=== PATIENT | male | born 1950 | race Caucasian/White ===

== ENCOUNTER 2024-08-08 08:43 | Outpatient (CLI) | payer OTHER, SELFPAY ==
--- OUTSIDE RECORDS SUMMARY | 2024-08-07 16:39 | XMS_ITS | Clinical Summary ---
Author Organization [facility] Address [place], [place] [address] Care Team Providers Care Slip Cover Estimator Name Role Phone Sammy Chavez MD Unavailable [phone] Pcp, No Primary Care Provider Unavailabl e Allergies No known active allergies Medications ibuprofen (ADVIL; MOTRIN) 200 mg tablet Take 200 mg by mouth 4 times daily if needed. Take 1 tablet as needed for general aches and pains Active metoprolol tartrate (LOPRESSOR) 50 mg tablet Take 50 mg by mouth 2 times daily. Active iron,carbonyl-v itamin C (VITRON C) 65 mg iron- 125 mg Delayed-Release tablet Take 1 Tablet by mouth once daily. Active acetaminophen (TYLENOL) 325 mg tablet Take 650 mg by mouth every 6 hours if needed. 1 Active amoxicillin (AMOXIL) 500 mg capsule 0 Active ferrous sulfate, 65 mg elemental, tablet Take 1 Tablet by mouth once daily. 1 Active meclizine (ANTIVERT) 25 mg tablet TAKE 1 TABLET BY MOUTH THREE TIMES DAILY NEEDED FOR DIZZINESS OR VERTIGO 0 Active metoprolol succinate (TOPROL XL) 50 mg sustained-relea se tablet 1 Active Multivits,Ca,Mi [id number] 9 mg iron-400 mcg tablet Take 1 Tablet by mouth once daily. 1 Active nitroglycerin (NITROSTAT) 0.4 mg sublingual tablet DISSOLVE 1 TABLET ON THE TONGUE EVERY 5MIN NEEDED FOR CHEST PAIN. MAY REPEAT EVERY 5 MINUTES FOR UP TO 3 DOSES. 1 Active aspirin chewable 81 mg chewable tablet CHEW ONE TABLET BY MOUTH EVERY DAY 1 Active atorvastatin (LIPITOR) 80 mg tablet TAKE ONE TABLET BY MOUTH AT BEDTIME FOR CHOLESTEROL 1 Active clopidogreL (PLAVIX) 75 mg tablet Take 1 Tablet by mouth once daily. 1 Active metoprolol succinate (TOPROL XL) 100 mg Sustained-Relea se tablet Take 0.5 Tablets by mouth once daily. 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[employer] Gender Identity Not on file Sexual Orientation Not on file Obstetrics History Last Filed Vital Signs Vital Sign Reading Time Taken Comments Blood Pressure 141/75 11/22/2023 8:11 AM CDT Pulse 67 11/22/2023 8:11 AM CDT Temperature 36.8 C (98.2 F) 11/22/2023 8:11 AM CDT Respiratory Rate 18 11/22/2023 8:11 AM CDT Oxygen Saturation 100% 11/22/2023 8:11 AM CDT Inhaled Oxygen Concentration - - Weight 83.5 kg (184 lb) 11/22/2023 8:11 AM CDT Height 177.8 cm (5' 10) 11/22/2023 8:11 AM CDT Body Mass Index 26.4 11/22/2023 8:11 AM CDT Plan of Treatment Upcoming Encounters Date Type Department Care Team (Late st Contact Info) Description 08/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 Ancillary Procedure [facility] [address] [place] [address] Health Maintenance Due Date Last Done Comments Tdap 1961 BMI (ht and wt on same day) for age 18+ 1968 Hepatitis C screening for age 18-79 1968 Tetanus booster 1970 Colonoscopy through age 75 1995 Lipids for age 45-75 1995 Pneumococcal series for age 50+ (1 of 1 - PCV) 2000 Zoster (shingles) series for age 50+ (1 of 2) 2000 Depression screening for age 12+ 06/13/2022 06/13/2021, 04/04/2021, 03/31/2021 Influenza for age 65+ 04/06/2024 RSV vaccine for adults or pr egnancy (1 - 1-dose 75+ series) 2025 COVID-19 vaccine series Completed 05/29/2024, 06/[address] MEDICARE RR PART B HB ONLY MEDICARE RR PART A HB ONLY MEDICARE PART A HB ONLY [place] [id number] MEDICARE RR PART B HB ONLY Advance Directives * Full Code (Latest Code Status on File) Date Activated Date Inactivated Comments 01/24/2010 8:47 AM 01/25/2010 2:25 AM Care Teams Slip Cover Estimator Relationship Specialty Start Date End Date Pcp, No . PCP - General 10/16/23 Sammy Chavez MD 03/08/21
--- OUTSIDE RECORDS SUMMARY | 2024-08-07 16:39 | XMS_ITS | Encounter Summary ---
Author Name [facility] [place] [facility] [place] Address [address] [place] [address] Care Team Providers Care Desk Maker Name Role Phone ALEXIS JENNIFER Primary Care Provider Unavailabl e Insurance Providers: All historical and current Section Date Range: From patient's date of to the date document was created. This section includes the names of all active insurance providers for the patient. Insurance Provider Type of Coverage Plan Name Start of Policy Coverage End of Policy Coverage Group Number Member ID Insurance Provider's Telephone Number Policy Roach's Name Patient's Relationship to Policy Roach MEDICARE (WNR) MEDICARE (M) RR PART A May 06, 2015 RR PART A [phone] LORINICHOLASHUNG CURRY PATIENT MEDICARE (WNR) MEDICARE (M) RR PART B May 06, 2015 RR PART B [id number] JYOTIUS HUNG PATIENT [facility] ([place]) MEDICARE SUPPLEMEN KRISTY MEDIC ARE SUPPL EMENT Aug 06, 2018 [id number] [phone] JYOTIUS HUNG PATIENT Selected Encounter This section includes the information on record at [place] for the Encounter. Date/Time Encounter Type Encounter Description Reason Provider Source May 29, 2024 08:00 AM OFFICE O/P EST HI 40 MIN PRIMARY CARE/MEDICINE ICD-10-CM Z95.1 Presence of aortocoronary bypass graft ALEXISYUNIOR Bowden E Encounter Template Text not used by [facility] Assessments - Encounter Diagnoses This section includes the primary and secondary diagnoses documented for the Encounter. Date/Time Primary/Secondary Diagnosis Diagnosis Name Provider Source May 29, 2024 08:33 AM PRIMARY Presence of aortocoronary bypass graft JENNIFER ESPINOZA [facility] May 29, 2024 08:33 AM SECONDARY Benign prostatic hyperplasia with lower urinary tract symp JENNIFER ESPINOZA [place] [facility] May 29, 2024 08:33 AM SECONDARY Encntr for general adult medical exam w/o abnormal findings ALEXISJENNIFER [place] [facility] May 29, 2024 08:33 AM SECONDARY Encounter for immunization ASHLEY CHRISTINA [place] [facility] May 29, 2024 08:33 AM SECONDARY Hyperlipidemia, unspecified [facility] May 29, 2024 08:33 AM SECONDARY Unspecified osteoarthritis, unspecified site [facility] Plan of Treatment: Future Appointments (+ 6 months) and Future Tests (+/- 45 days) The Plan of Treatment section includes future care activities for the [facility] [place] [facility] This section includes future appointments and future orders which are active, pending or scheduled. Future Appointments This section includes appointments that were scheduled to occur 6 months from the date of the Encounter, up to a maximum of 20 appointments. The data comes from all [place] treatment facilities. Appointment Date/Time Appointment Type Appointme nt Facility Name Jun 26, 2024 07:45 AM AMBULATORY - SURGERY [facility] Jul 21, 2024 07:55 AM AMBULATORY - NONE [facility] Jul 24, 2024 08:45 AM AMBULATORY - SURGERY [facility] Sep 30, 2024 09:20 AM AMBULATORY - SURGERY [facility] Lab Results: +/- 30 days of the encounter This section includes the Chemistry and Hematology Lab Results on record with [facility] for the patient. Radiology Reports and Pathology Reports are provided separately, in subsequent sections. Lab Results This section contains the Chemistry/Hematology Results that were resulted 30 days before or 30 daysafter the date of the Encounter. Date/Time Source Result Type Result - Unit Interpretation Reference Range Comment Jun 02, 2024 11:59 PM [facility] OCCULT BLOOD FIT X1 SCREEN Specimen Type: FECES No comment entered. Ordering Provider: JENNIFER ESPINOZA Report Released Date/Time: May 29, 2024 08:11 AM Reporting Lab: [facility] [id number] Performing Lab: [facility] [id number] OCCULT BLOOD (FIT) #1 OF 1 Negative Negative May 29, 2024 08:35 AM [facility] URINALYS[facility] Specimen Type: URINE No comment entered. Ordering Provider: JENNIFER ESPINOZA Report Released Date/Time: May 29, 2024 08:11 AM Reporting Lab: [facility] [phone] Performing Lab: [facility] [id number] URINE COLOR LIGHT-YELLOW SPECIFIC GRAVITY 1.020 1.003-1.035 URINE BILIRUBIN NEGATIVE NEGATIVE URINE KETONES NEGATIVE NEGATIVE URINE GLUCOSE NEGATIVE mg/dL <30 URINE PROTEIN NEGATIVE mg/dL <20 URINE PH 7.0 5.0-8.0 URINE WBC/HPF 1 /[HPF] 0-7 URINE BACTERIA NONE SEEN URINE RBC/HPF 1 /[HPF] 0-3 APPEARANCE CLEAR SQUAMOUS EPITHELIAL <1 /[HPF] URINE BLOOD NEGATIVE NEGATIVE URINE NITRITE NEGATIVE NEGATIVE LEUKOCYTE ESTERASE NEGATIVE NEGATIVE May 29, 2024 08:29 AM [facility] HEMOGLOBIN A1C Specimen Type: BLOOD Comment: Values obtained from A1C measurements can vary. For typical A1C assays, a reported value of 7.0 could actually be between 6.7 and 7.3 if measured by a reference method. A reported value of 9.0 could actually be between 8.7 and 9.3. Ref: http://www.ngs p.org/CAPdata. asp Ordering Provider: JENNIFER ESPINOZA Report Released Date/Time: May 29, 2024 08:11 AM Reporting Lab: [facility] [id number] Performing Lab: [facility] [phone] HEMOGLOBIN A1C 5.6 4.0-6.0 May 29, 2024 08:29 AM [facility] TSH W/REFLEX TO FREE T4 Specimen Type: PLASMA No comment entered. Ordering Provider: JENNIFER ESPINOZA Report Released Date/Time: May 29, 2024 08:11 AM Reporting Lab: [facility] [phone] Performing Lab: [facility] [id number] TSH 3.35 u[IU]/mL 0.35-4.94 May 29, 2024 08:29 AM [facility] LIPID PANEL,NON-FASTING Specimen Type: PLASMA No comment entered. Ordering Provider: JENNIFER ESPINOZA Report Released Date/Time: May 29, 2024 08:11 AM Reporting Lab: [facility] [phone] Performing Lab: [facility] [phone] CHOLESTEROL 173 mg/dL <199 .HDL 59 mg/dL >40 LDL CALCULATION 99 mg/dL <99 VLDL CALCULATION 15 mg/dL <29 NON HDL CHOLESTEROL 114 mg/dL <129 TRIG(NON FASTING) 75 mg/dL <149 May 29, 2024 08:29 AM [facility] COMPREHENSIVE METABOLIC PANEL+MG Specimen Type: PLASMA No comment entered. Ordering Provider: JENNIFER ESPINOZA Report Released Date/Time: May 29, 2024 08:11 AM Reporting Lab: [facility] [phone] Performing Lab: [facility] [phone] CREATININE 0.8 mg/dL 0.7-1.2 UREA NITROGEN 15 mg/dL 8-26 GLUCOSE 88 mg/dL 70-100 SODIUM 141 mmol/L 136-145 POTASSIUM 4.2 mmol/L 3.5-5.1 CHLORIDE 108 mmol/L H 98-107 CO2 24 mmol/L 22-29 CALCIUM 9.5 mg/dL 8.4-10.2 PROTEIN,TOTAL 6.7 g/dL 6.4-8.3 ALBUMIN 4.1 g/dL 3.5-5.2 BILIRUBIN, TOTAL 0.7 mg/dL 0.2-1.2 MAGNESIUM 2.0 mg/dL 1.6-2.6 ANION GAP 9 mmol/L 5-15 ALKALINE PHOSPHATASE 105 U/L 40-150 ALT/SGPT 20 U/L <44 AST/SGOT 26 U/L 11-34 .CREAT EGFR(CKD-EPI) >90 >60 May 29, 2024 08:29 AM [facility] CBC & DIFF Specimen Type: BLOOD Comment: Automated Differential Performed Ordering Provider: JENNIFER ESPINOZA Report Released Date/Time: May 29, 2024 08:11 AM Reporting Lab: [facility] [phone] Performing Lab: [facility] [phone] WBC 5.1 4.0-11.0 RBC 4.61 4.60-6.20 HGB 14.1 g/dL 13.5-17.9 HCT 43.8 41.0-54.0 MCV 95.0 fL 80.0-100.0 MCH 30.6 pg 27.0-33.0 MCHC 32.2 g/dL 32.0-37.5 PLT 234 150-400 MPV 10.5 fL 9.1-13.0 NEUT 63.8 40.0-80.0 LYMPHS 23.7 15.0-45.0 MONO 9.7 2.0-12.0 EOSINO 1.8 0.0-6.0 BASO 0.8 0.0-2.0 RDW 13.2 11.5-14.5 ABS LYMPH 1.2 1.0-4.0 ABS MONO 0.5 0.1-1.0 ABS NEUT 3.2 2.0-7.7 ABS EOS 0.1 0.0-0.5 ABS BASO 0.0 0.0-0.2 IG(META,MYELO,[place] O) 0.2 ABS IMMATURE GRAN 0.0 0.0-0.1 Vital Signs: All taken on the encounter date This section contains inpatient and outpatient Vital Signs collected on the date of the Encounter. Date/Time Temperature Pulse Blood Pressure Respiratory Rate SP02 Pain Height Weight Body Mass Index Source May 29, 2024 07:48 AM 96.7 65 124/74 14 97 0 69.5 185 27 [facility] Immunizations: All administered on the encounter date This section contains immunizations associated to the Encounter. Immunization Series Date Issued Reaction Comments COVID-19 (PFIZER), MRNA, LNP -S, PF, GIL-SUCROSE, 30 MCG/0.3 ML (AGES 12+ YEARS) May 29, 2024 TD (ADULT), 5 LF TETANUS TOX OID, PRESERVATIVE FREE, ADSORBED May 29, 2024 Social History: Smoking Status (Most current) and Tobacco Use (All prior to encounter date) This section includes the most current, and the historical, smoking and tobacco- related health factors from the [place] facility where the Encounter took place. Current Smoking Status This section includes the most current smoking, or tobacco-related health factor, from the [place] facility where the Encounter took place. Date/Time Current Smoking Status Comment Ade ity May 29, 2024 08:00 AM [place]-TOBACCO FORMER USER [facility] Tobacco Use History This section includes a history of the smoking, or tobacco-related health factors, that were collected on or before the date of the Encounter. The data comes from the [place] facility where the Encounter took place. Date/Time Smoking Status/Tobacco Use Comment F acility May 29, 2024 08:00 AM [place] 15 YRS OR MORE [facility] Encounter Notes: All associated encounter notes This section contains the clinical notes associated to the Encounter. Date/Time Encounter Note(s) Provider Source May 29, 2024 08:07 AM H & P NOTE: LOCAL TITLE: CB ANNUAL VISIT STANDARD TITLE: H & P NOTE DATE OF NOTE: MAY 29, 2024@08:07 ENTRY DATE: MAY 29, 2024@07:44:55 AUTHOR: JENNIFER ESPINOZA EXP COSIGNER: URGENCY: STATUS: COMPLETED Type of Visit: ANNUAL VISIT - ESTABLISH CARE Reason for Visit: ANNUAL VISIT - ESTABLISH CARE Non [place] Providers: PCP Dr. Anastasia Mcallister - [facility] HPI: 74 year old MALE with PMH of below medical conditions seen today to establish care with [facility]. [place] [facility] Reports overall feeling well today. Tolerating medications without adverse effects. Denies recent illnesses or hospitalizations. [facility]ceives medical care with [facility] reviewed in [facility]. Concerns: Main reason for today's visit is to establish with local [place] care. He moved to the area to be closer to family after care home. Having BPH symptoms with urinary urgency with post-void dribbling. Nocturia x1. Denies retention, dyuria, hematuria, hx UTIs. Discussed medication options such as Tamsulosin or Finasteride. He declines this today but will f/u if desiring further care in the future. Past Medical History: Active problems - Computerized Problem List is the source for the followin. Ex-smoker - Quit 1980. 2. Osteoarthritis - S/P right total hip in 2009 ([place]). 3. History of calculus of kidney 4. Hyperlipidemia 5. AK - Actinic keratosis 6. Benign prostatic hypertrophy without outflow obstruction 7. Tinnitus 8. Plantar fasciitis of right foot 9. History of coronary artery bypass grafting - Mar 11 2021 triple bypass from femoral artery 10. 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 CABG 03/2021 2. 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 Normal resp rate and effort Abd: soft, NT : deferred Extrem: no edema Neuro: no gross deficits Mental: Normal mood and affect, cooperative Labs: PENDING Imaging: NONE TODAY Assessment/Plan: 1. ANNUAL VISIT - ESTABLISH CARE 2. CAD - stable; continue medical mangement; NTG renewed 3. HYPERLIPIDEMIA - lipid panel pending; Continue Atrovastatin 4. OSTEOARTHRITIS - stable; continue conservative measures 5. HX ANEMIA - CBC pending 6. BPH - declines tx today; will f/u prn Labs pending Continue current medications - no changes today Medication renewals sent as needed Medication reconciliation completed with [facility]et Encouraged healthy lifestyle choices Health maintenance recommendations reviewed Immunizations up to date - Td and COVID vaccines given today Patient information folder for [facility] provided and reviewed Information for local youth liaison officer provided Directed to local VSO for any claims concerns (Agent [place] exposure) Provided contact information for [place] audiology and eye clinics He may call to arrange own appointment at his convenience After visit summary offered Questions were answered Patient comfortable with above plan Follow up with nonVA PCP, Cardiology as directed RTC 1 year for annual visit or sooner as needed Health Care Maintenance - Colon Cancer Screenin05/31/21 Colonoscopy - REPEAT 10 YEARS - 06/12/23 FIT NEGATIVE - FIT ORDERED - AAA Screening (Age > 65-75) - 1 time for men: 10/07/2015 US - 2.4cm - Lung Cancer Screening (Age 55-79) - Low Dose CT Chest for Lung Cancer Screening for those with smoking history: N/A - Hepatitis C Screenin10/21/14 NEGATIVE - Vaccinations: IM - Immunizations ADMINISTERED Immunization Series Date Facility Reaction Info COVID-19 (MODERNA), MRNA, LNP-S,* 2 10/16/2020 [facility] * <C> COVID-19 (MODERNA), MRNA, LNP-S,* 1 09/18/2020 [facility] * <C> COVID-19 (PFIZER), MRNA, LNP-S, * 1 06/20/2022 [facility] * <C> COVID-19 (PFIZER), MRNA, LNP-S, * 3 07/23/2021 [facility] * <C> COVID-19 (PFIZER), MRNA, LNP-S, * 1 06/07/2023 [facility] * PNEUMOCOCCAL CONJUGATE PCV 13 08/02/2016 [facility]* PNEUMOCOCCAL CONJUGATE PCV 13 04/27/2016 [facility] PNEUMOCOCCAL POLYSACCHARIDE PPV23 12/17/2017 [facility] * <C> TD (ADULT), 2 LF TETANUS TOXOID,* 10/24/2004 [facility] TDAP 10/20/2013 [place]* <C> CONTRAINDICATED No data available REFUSED ======= Immunization Date Facility Info INFLUENZA, UNSPECIFIED FORMULATI* 06/07/2023 [facility] * <I> TD(ADULT) UNSPECIFIED FORMULATION 06/07/2023 [facility] * <I> ZOSTER RECOMBINANT 06/07/2023 [facility] * <I> <C> See the Detailed Immunizations Health Summary Component[DIM] for Comments <I> See the Detailed Immunizations Health Summary Component[DIM] for Additional Information * Value is truncated; see the Detailed Immunizations Health Summary Component[DIM] for complete text Total time spent with patient care including chart review/diagnostic and testing review, patient interview/examination, counseling, documentation and care coordination was 45 minutes Clinical Reminders: Avg Risk Colorectal Cancer Screen: AVERAGE RISK colorectal cancer screening is due based on information available to this clinical reminder FOBT/FIT (Fecal Immunochemical Testing) has been ordered. See order tab for details. Medication Reconciliation: Education Evaluations *Was medication education provided for NEW medications or CHANGES to medications? (including medication name, dose, route, reason for use, and potential side effects). No new medications or medication changes during this encounter. TERATOGENIC MED & CONTRACEPTION REVIEW (Optional)... MEDICATION RECONCILIATION List Given: An updated medication list was provided to the patient/caregiver. Review Done: The medication list shown below was verified for accuracy and it includes all pending medications/active medications/all medications or discontinued within the last 90 days/all remote medications and non-VA medications. If a given category (i.e. remote meds) is not shown, that means that a patient doesn't have a medication(s) in that category. Allergies listed below were also reviewed/updated for accuracy. Allergies/ADR from [facility] may not display in [facility]. Use [facility] MRT5 - Allergies/ADRs FACILITY ALLERGY/ADR -------- No Remote Allergy/ADR Data available for this patient [facility] No Known Allergies Active and Recently Outpatient Medications (including Supplies): Issue Date Status Last Fill Active Outpatient Medications Refills Expiration 1) ASPIRIN 81MG CHEW TAB Qty: 108 for 90 ACTIVE Issu:06-07-23 days Sig: CHEW ONE TABLET BY MOUTH Refills: 1 Last:04-02-24 EVERY DAY Expr:06-07-24 2) ATORVASTATIN CALCIUM 80MG TAB Qty: 90 ACTIVE Issu:06-07-23 for 90 days Sig: TAKE ONE TABLET BY Refills: 1 Last:04-02-24 MOUTH AT BEDTIME FOR CHOLESTEROL Expr:06-07-24 Issue Date Status Last Fill Pending Outpatient Medications Refills Expiration 1) ASPIRIN 81MG CHEW TAB Qty: 108 Sig: PENDING CHEW ONE TABLET BY MOUTH EVERY DAY Refills: 0 2) ATORVASTATIN CALCIUM 80MG TAB Qty: 90 PENDING Sig: TAKE ONE TABLET BY MOUTH AT Refills: 0 BEDTIME FOR CHOLESTEROL 4 Total Medications /es/ JENNIFER ESPINOZA PA-C PHYSICIAN [facility] Signed: 05/29/2024 08:34 [facility] May 29, 2024 07:51 AM PRIMARY CARE NURSI NG NOTE: LOCAL TITLE: CBOC NURSING PROGRESS NOTE STANDARD TITLE: PRIMARY CARE NURSING NOTE DATE OF NOTE: MAY 29, 2024@07:51 ENTRY DATE: MAY 29, 2024@07:51:19 AUTHOR: ASHLEY CHRISTINA EXP COSIGNER: URGENCY: STATUS: COMPLETED [facility] NURSING PROGRESS NOTE Has ADDENDA TYPE OF VISIT: Appointment Check In Type of appointment: In-person appointment REASON FOR VISIT: TAVIA ALLERGIES: Patient has answered NKA VITAL SIGNS: Blood Pressure: 124/74 (05/29/2024 07:48) Pulse: 65 (05/29/2024 07:48) Respiration: 14 (05/29/2024 07:48) Temperature: 96.7 F [35.9 C] (05/29/2024 07:48) Weight: 185 lb [83.91 kg] (05/29/2024 07:48) Height: 69.5 in [176.5 cm] (05/29/2024 07:48) BMI: 27.0 O2 Sat: 97% (05/29/2024 07:48) Pain: 0 (05/29/2024 07:48) PAIN SCREEN: Patient is not having significant pain that they wish to discuss with their provider today. MEDICATION Active Outpatient Medications (including Supplies): ASPIRIN 81MG CHEW TAB CHEW ONE TABLET BY MOUTH EVERY DAY ACTIVE ATORVASTATIN CALCIUM 80MG TAB TAKE ONE TABLET BY MOUTH AT ACTIVE BEDTIME FOR CHOLESTEROL Suicide Screen: C-SSRS Screening [place] Suicide Severity Rating Scale (C-SSRS) screener 1. Over the past month, have you wished you were or wished you could go to sleep and not wake up? No 2. Over the past month, have you had any actual thoughts of killing yourself? No 3. Over the past month, have you been thinking about how you might do this? Response not required due to responses to other questions. 4. Over the past month, have you had these thoughts and had some intention of acting on them? Response not required due to responses to other questions. 5. Over the past month, have you started to work out or worked out the details of how to kill yourself? Response not required due to responses to other questions. 6. If yes, at any time in the past month did you intend to carry out this plan? Response not required due to responses to other questions. 7. In your lifetime, have you ever done anything, started to do anything, or prepared to do anything to end your life (for example, collected pills, obtained a gun, gave away valuables, went to the roof but didn't jump)? No 8. If YES, was this within the past 3 months? Response not required due to responses to other questions. Depression Screening: Perform PHQ-2 A PHQ-2 screen was performed. The score was 0 which is a negative screen for depression. Over the past two weeks, how often have you been bothered by the following problems? 1. Little interest or pleasure in doing things Not at all 2. Feeling down, depressed, or hopeless Not at all Alcohol Use Screen (AUDIT-C): Alcohol Screen: SCREEN FOR ALCOHOL (AUDIT-C) An alcohol screening test (AUDIT-C) was negative (score=4). 1. How often did you have a drink containing alcohol in the past year? Consider a drink to be a 12 ounce can or bottle of regular beer, 8 ounces of malt liquor, a 5 ounce glass of table wine, or a 1.5 ounce shot of liquor (like scotch, gin, or vodka). Four or more times a week 2. How many drinks containing alcohol did you have on a typical day when you were drinking in the past year? One or two drinks 3. How often did you have six or more drinks on one occasion in the past year? Never Tobacco Use Screening: The patient is a former tobacco user. The patient quit fifteen or more years ago. PTSD Screening: PC-PTSD-5 A PTSD screening test (PC-PTSD-5) was negative (score=0). IN THE PAST MONTH, have you ever had any experience that was so frightening, horrible or traumatic. For example: A serious accident or fire a physical or sexual assault or abuse An earthquake or flood A war Seeing someone be killed or seriously injured Having a loved one through homicide or suicide 1. Have you ever experienced this kind of event? YES 2. Had nightmares about the event(s) or thought about the event(s) when you did not want to? NO 3. Tried hard not to think about the event(s) or went out of your way to avoid situations that reminded you of the event(s)? NO 4. Been constantly on guard, watchful, or easily startled? NO 5. Lucan numb or detached from people, activities, or your surroundings? NO 6. Lucan guilty or unable to stop blaming yourself or others for the event(s) or any problems the event(s) may have caused? NO Nursing Annual Screening: Whole Health Screen is due OR due soon (within 90 days). Whole Health Screening Why is addressing your overall health important to you? So I can live longer What do you want your health for (why do you want to be healthy)? Good quaility of life Fall History Screen During the past 12 months, have you had any falls? Patient does not report any falls in the past 12 months. MEDICATIONS: Patient does not have an active prescription for one of the following medications: Antihypertensives, Antidepressants, Antipsychotics, Diuretics, or Opioid Analgesics (Contolled Substance medications used for pain). Script Talk Screen Are you able to read your prescription bottles with your glasses, magnifiers or other aids? Yes or patient not taking any prescriptions. Skin Screen Patient reports any current pressure ulcers, a history of pressure ulcers, or a wound from a medical typist or Patient is bed-confined or a wheelchair-user or Patient requires assistance to transfer/change position No, Skin Screen is Negative Home Abuse/Violence Screen Is your home free of abuse and violence? Yes Outpatient Nutrition Screen Body Mass Index (BMI)= 27.0 [place]: Collection DT Specimen Test Name Result Units Ref Range 06/07/2023 13:31 BLOOD !! HEMOGLOBIN A1C 5.5 % 4.0 - 6.0 !! Indicates COMMENTS AVAILABLE...Refer to Interim Lab Report. [place] Hgb A1C: No data available [place] Hgb A1C: No data available Point of Care Hgb A1C: POC HGB A1C____ Is patient's BMI less than 18.5? No Does patient have swallowing, coughing, or chewing problems affecting oral intake? No Has patient experienced unplanned weight loss or gain greater than 10 pounds over the last 2 months? No Is patient's Hgb A1C (Glycosylated Hemoglobin) greater than 9.5? No Is patient receiving Total Parenteral Nutrition (TPN) or Tube Feedings? No Patient Health Education Screen BARRIERS/SPECIAL NEEDS: No barriers identified PREFERRED STYLE OF LEARNING: No preference stated Client Assistive Service (MANAN) Screen Does the patient require assistance with outpatient visit? Lillian /arnulfo/ ASHLEY CHRISTINA LPN [facility] Signed: 05/29/2024 07:56 05/29/2024 ADDENDUM STATUS: COMPLETED Td / Tdap Immunization: Td (adult) adsorbed, preservative free (Tenivac) Administered: TD (ADULT), 5 LF TETANUS TOXOID, PRESERVATIVE FREE, ADSORBED Date Administered: May 29, 2024 08:00 Wire Coiler Machine Operator: SANOFI PASTEUR Lot: [id number] Exp Date: May 05, 2026 NDC: [id number] Admin Route/Site: INTRAMUSCULAR/RIGHT DELTOID Dosage: 0.5mL Vaccine Information Statement(s): TD (TETANUS, DIPHTHERIA) VACCINE VIS Mar 11, 2021 ([place]) Order By: Policy Administered By: Ashley Christina Vaccine Information Sheet (VIS) was given to the patient/caregiver, education regarding adverse reactions was discussed, as well as barriers to learning, if any, were acknowledged. 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 /arnulfo/ ASHLEY CHRISTINA SENIOR DB2 SYSTEMS PROGRAMMERShanelle napoles [facility] Signed: 05/29/2024 08:01 ASHLEY CHRISTINA [facility]
--- OUTSIDE RECORDS SUMMARY | 2024-08-07 16:39 | XMS_ITS | Encounter Summary ---
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 Date/Time Encounter Type Encounter Description Reason Pro vider Source Jul 21, 2024 12:00 PM Outpatient Encounter EVENT (HISTORICAL) IHE Encounter Template Text not used by [place] Plan of Treatment: Future Appointments (+ 6 months) and Future Tests (+/- 45 days) The Plan of Treatment section includes future care activities for the patient from [facility] [place] [facility]. This section includes future appointments and future orders which are active, pending or scheduled. Future Appointments This section includes appointments that were scheduled to occur 6 months from the date of the Encounter, up to a maximum of 20 appointments. The data comes from all [facility]. Appointment Date/Time Appointment Type Appointme nt Facility Name Jul 24, 2024 08:45 AM AMBULATORY - SURGERY [facility] Sep 30, 2024 09:20 AM AMBULATORY - SURGERY [facility] Social History: Smoking Status (Most current) and Tobacco Use (All prior to encounter date) This section includes the most current, and the historical, smoking and tobacco- related health factors from the [place] facility where the Encounter took place. Current Smoking Status This section includes the most current smoking, or tobacco-related health factor, from the [place] facility where the Encounter took place. Date/Time Current Smoking Status Comment Facil ity Jun 15, 2022 12:04 PM VA-TOBACCO NEVER USED [facility] Tobacco Use History This section includes a history of the smoking, or tobacco-related health factors, that were collected on or before the date of the Encounter. The data comes from the [place] facility where the Encounter took place. Date/Time Smoking Status/Tobacco Use Comment F acility Oct 21, 2014 09:04 AM FORMER TOBACCO USER 7Y OR SIMA R [facility] Oct 20, 2013 08:37 AM FORMER TOBACCO USER 7Y OR SIMA R [facility]
--- OUTSIDE RECORDS SUMMARY | 2024-08-07 16:39 | XMS_ITS | Encounter Summary ---
Author Name [facility] [place] [facility] [place] Address [address] [place] [address] Care Team Providers Care Filleter Name Role Phone JENNIFER ESPINOZA Primary Care [...] A May 06, 2015 RR PART A [id number] [phone] JYOTIHUNG CURRY PATIENT MEDICARE (WNR) MEDICARE (M) RR PART B May 06, 2015 RR PART B [id number] HUNG MAYA PATIENT [facility] ([place] MEDICARE SUPPLEMEN KRISTY MEDIC ARE SUPPL EMENT Aug 06, 2018 [id number] [phone] HUNG MAYA PATIENT Selected Encounter This section includes the information on record at [place] for the Encounter. Date/Time Encounter Type Encounter Description Reason Provider Source Jul 24, 2024 08:45 AM CONFORMITY EVALUATION AUDIOLOGY ICD-10-CM H90.3 Sensorineural hearing loss, bilateral ROBERT GARCÍA IHE Encounter Template Text not used by [place] Assessments - Encounter Diagnoses This section includes the primary and secondary diagnoses documented for the Encounter. Date/Time Primary/Secondary Diagnosis Diagnosis Name Provider Source Jul 24, 2024 09:32 AM PRIMARY Sensorineural hearing loss, bilateral JETT QUINTERO [facility] Jul 24, 2024 09:32 AM SECONDARY Encounter for fitting and adjustment of hearing aid JETT QUINTERO [facility] Jul 24, 2024 09:32 AM SECONDARY Tinnitus, bilateral INGRID,JETT Bowden [facility] Plan of Treatment: Future Appointments (+ 6 months) and Future Tests (+/- 45 days) The Plan of Treatment section includes future care activities for the patient from all [place] [facility] This section includes future appointments and future orders which are active, pending or scheduled. Future Appointments This section includes appointments that were scheduled to occur 6 months from the date of the Encounter, up to a maximum of 20 appointments. The data comes from all [place] treatment facilities. Appointment Date/Time Appointment Type Appointme nt Facility Name Sep 30, 2024 09:20 AM AMBULATORY - SURGERY [facility] Social History: Smoking Status (Most current) and Tobacco Use (All prior to encounter date) This section includes the most current, and the historical, smoking and tobacco- related health factors from the [place] facility where the Encounter took place. Current Smoking Status This section includes the most current smoking, or tobacco-related health factor, from the [place] facility where the Encounter took place. Date/Time Current Smoking Status Comment Facil ity Jun 15, 2022 12:04 PM VA-TOBACCO NEVER USED [facility] Tobacco Use History This section includes a history of the smoking, or tobacco-related health factors, that were collected on or before the date of the Encounter. The data comes from the [place] facility where the Encounter took place. Date/Time Smoking Status/Tobacco Use Comment F acility Oct 21, 2014 09:04 AM FORMER TOBACCO USER 7Y OR GREATE R [facility] Oct 20, 2013 08:37 AM FORMER TOBACCO USER 7Y OR [facility] R [facility] Encounter Notes: All associated encounter notes This section contains the clinical notes associated to the Encounter. Date/Time Encounter Note(s) Provider Source Jul 24, 2024 07:46 AM AUDIOLOGY NOTE: LOCAL TITLE: AUDIOLOGY CLINIC NOTE STANDARD TITLE: AUDIOLOGY NOTE DATE OF NOTE: JUL 24, 2024@07:46 ENTRY DATE: JUL 24, 2024@07:46:14 AUTHOR: JETT QUINTERO COSIGNER: GEE GARCÍA URGENCY: STATUS: COMPLETED SUBJECT: Hearing aid fitting AUDIOLOGY CLINIC NOTE Has ADDENDA DIAGNOSIS: Encounter for Fitting and Adjustment of Hearing Aid Sensorineural hearing loss, bilateral Tinnitus, bilateral REASON FOR VISIT: Therapeutic - hearing aid fitting, conformity evaluation (real-ear measures), orientation and counseling Ebony was seen for Hearing Aid [place] Appointment HISTORY: Ebony is an experienced hearing aid wearer. Recommended keep his old hearing aids as a backup/spare as needed. HEARING AIDS (Right/Left) fit: 07/24/2024 Make: Phonak Model: Audeo I90-R Serial Numbers R/L: [id number] Tech Writer/Slim Tube Size: 2M receivers Dome/Earmold: Small vented ACCESSORIES: Android cell phone connection and kirk. OTOSCOPY: Both Ears: Free of excessive cerumen. Normal anatomy bilaterally FITTING/ORIENTATION/REPRO GRAMMING: Hearing aid(s) are a good physical fit. Feedback test was completed and feedback health and wellness manager was activated. Hearing aid(s) were programmed to prescriptive targets, which were derived from the Veterans hearing loss. CONFORMITY EVALUATION (VERIFICATION OF HEARING AID FUNCTION): Real Ear Aided Response (REAR) was measured using the Verifit 2 system using NAL-NL2 targets. Most targets were met. Loudness intolerance was measured using an 85 dB MPO tone sweep and the patient was able to tolerate the output of the hearing device(s). Veterans subjective impressions were considered while adjusting the hearing aid(s). reported good sound quality and equal balance between ears after adjustments were made. reported a comfortable fit. Milmine demonstrated understanding of the new aid(s) and was able to insert the hearing aid(s) appropriately, as well as manipulate the volume control and charging unit. Indicator tones were demonstrated for Milmine. Volume control enabled- Synchronized Program button enabled - Automatic - Speech in noise Veterans hearing aid(s) were paired to the patient's cell phone and kirk. A practice phone call was completed to verify functionality. Education and counseling was completed regarding streaming capabilities. The lock master phone application was reviewed in detail (volume control, program changes, settings, etc.) and demonstrated in the office. Milmine was counseled (30 minutes) regarding: -Full-time hearing aid use and acclimating to amplification -Realistic expectations for hearing aid use -Appropriate communication strategies -How to charge the hearing aids -Location and operation of all controls -Proper care and maintenance -Protecting hearing in high noise levels -Warning about battery ingestion -[facility] and Call Center contact information and services, including the trial period. Prognosis for success is good, given the Veterans response to the hearing aid(s). Hearing aid(s) were issued and supplies were mailed. Milmine was provided with a copy of [place] issuance form 2477b. PLAN: -The Milmine will return to clinic as needed for an updated hearing test and servicing of amplification. -The Milmine is in agreement with this plan. /Francesca Anderson CCC-A TRAY LINE SUPERVISOR Signed: 07/24/2024 09:45 for JETT QUINTERO Audiology Student /Francesca Anderson CCC-A TRAY LINE SUPERVISOR Cosigned: 07/24/2024 09:45 07/24/2024 ADDENDUM STATUS: COMPLETED Milmine with bilateral sensorineural loss was seen for the fitting of his new custom earmolds for his spare hearing aids. He is also following up on the fitting of his new hearing aids and pairing of the aids to the iPhone. The new earmolds were successfully fit to the hearing aids which were programmed utilizing Real Ear Measurements (REMs). Reviewed the care/cleaning of the devices. Successfully connected the aids to 's smartphone. Answered questions to 's satisfaction. ------ I am the provider for this encounter and participated in the evaluation of this patient. I confirmed the dominguez elements of the history and physical examination. Diagnosis and plan reflect my discussions and input. Pt was seen for a 60-minute appointment. /Francesca Anderson CCC-A TRAY LINE SUPERVISOR Signed: 07/24/2024 09:45 GEE GARCÍA [facility]
--- OUTSIDE RECORDS SUMMARY | 2024-08-07 16:39 | XMS_ITS | Encounter Summary ---
Author Name [facility] [place] Address [address] [place] [address] Care Team Providers Care Leadite Heater Name Role Phone JENNIFER ESPINOZA Primary Care [...] A May 06, 2015 RR PART A [id number] [phone] HUNG MAYA PATIENT MEDICARE (WNR) MEDICARE (M) RR PART B May 06, 2015 RR PART B [id number] [facility] ([place]) MEDICARE SUPPLEMEN KRISTY MEDIC ARE SUPPL EMENT Aug 06, 2018 [id number] [phone] HUNG MAYA PATIENT Selected Encounter This section includes the information on record at [place] for the Encounter. Date/Time Encounter Type Encounter Description Reason Pro vider Source Jul 28, 2024 06:27 PM Outpatient Encounter EVENT (HISTORICAL) IHE Encounter Template Text not used by [place] Plan of Treatment: Future Appointments (+ 6 months) and Future Tests (+/- 45 days) The Plan of Treatment section includes future care activities for the patient [facility] [place] [facility] This section includes future appointments and future orders which are active, pending or scheduled. Future Appointments This section includes appointments that were scheduled to occur 6 months from the date of the Encounter, up to a maximum of 20 appointments. The data comes from all [place] treatment facilities. Appointment Date/Time Appointment Type Appointme nt Facility Name Sep 30, 2024 09:20 AM AMBULATORY - SURGERY [facility] Social History: Smoking Status (Most current) and Tobacco Use (All prior to encounter date) This section includes the most current, and the historical, smoking and tobacco- related health factors from the [place] facility where the Encounter took place. Current Smoking Status This section includes the most current smoking, or tobacco-related health factor, from the [place] facility where the Encounter took place. Date/Time Current Smoking Status Comment Facil ity Jun 15, 2022 12:04 PM VA-TOBACCO NEVER USED [facility] Tobacco Use History This section includes a history of the smoking, or tobacco-related health factors, that were collected on or before the date of the Encounter. The data comes from the [place] facility where the Encounter took place. Date/Time Smoking Status/Tobacco Use Comment F acility Oct 21, 2014 09:04 AM FORMER TOBACCO USER 7Y OR SIMA Aguirre [facility] Oct 20, 2013 08:37 AM FORMER TOBACCO USER 7Y OR SIMA Aguirre [facility]
--- OUTSIDE RECORDS SUMMARY | 2024-08-07 16:39 | XMS_ITS | Encounter Summary ---
Author Name [facility] [facility] [place] Address [address] [place] [address] Care Team Providers Care Increment Manager Name Role Phone JENNIFER ESPINOZA Primary Care [...] A May 06, 2015 RR PART A [id number] [phone] JYOTIUS HUNG PATIENT MEDICARE (WNR) MEDICARE (M) RR PART B May 06, 2015 RR PART B [id number] [phone] HUNG [place] PATIENT [facility]) MEDICARE SUPPLEMEN KRISTY MEDIC ARE SUPPL EMENT Aug 06, 2018 [id number] [phone] HUNG [place] PATIENT Selected Encounter This section includes the information on record at [place] for the Encounter. Date/Time Encounter Type Encounter Description Reason Provider Source Jun 26, 2024 07:45 AM HEARING AID REPAIR/MODIFYING AUDIOLOGY ICD-10-CM Z01.118 Encntr for exam of ears and hearing w oth abnormal findings DENIS GARCÍA IH Encounter Template Text not used by [place] Assessments - Encounter Diagnoses This section includes the primary and secondary diagnoses documented for the Encounter. Date/Time Primary/Secondary Diagnosis Diagnosis Name Provider Source Jun 26, 2024 11:48 AM PRIMARY Encntr for exam of ears and hearing w oth abnormal findings JETT QUINTERO [facility] Jun 26, 2024 11:48 AM SECONDARY Encounter for fitting and adjustment of hearing aid JETT QUINTERO [facility] Jun 26, 2024 11:48 AM SECONDARY Sensorineural hearing loss, bilateral [facility] Jun 26, 2024 11:48 AM [facility]OND[facility] Plan of Treatment: Future Appointments (+ 6 months) and Future Tests (+/- 45 days) The Plan of Treatment section includes future care activities for the patient from all [place] [facility]. This section includes future appointments and future orders which are active, pending or scheduled. Future Appointments This section includes appointments that were scheduled to occur 6 months from the date of the Encounter, up to a maximum of 20 appointments. The data comes from all [place] treatment facilities. Appointment Date/Time Appointment Type Appointme nt Facility Name Jul 21, 2024 07:55 AM AMBULATORY - NONE [facility] Jul 24, 2024 08:45 AM AMBULATORY - SURGERY [facility] Sep 30, 2024 09:20 AM AMBULATORY - SURGERY [facility] Lab Results: +/- 30 days of the encounter This section includes the Chemistry and Hematology Lab Results on record with [place] for the patient. Radiology Reports and Pathology Reports are provided separately, in subsequent sections. Lab Results This section contains the Chemistry/Hematology Results that were resulted 30 days before or 30 daysafter the date of the Encounter. Date/Time Source Result Type Result - Unit Interpretation Reference Range Comment Jun 02, 2024 11:59 PM NIRMALA PEREZ OCCULT BLOOD FIT X1 SCREEN Specimen Type: FECES No comment entered. Ordering Provider: JENNIFER ESPINOZA Report Released Date/Time: May 29, 2024 08:11 AM Reporting Lab: [facility] [id number] Performing Lab: [facility] [id number] OCCULT BLOOD (FIT) #1 OF 1 Negative Negative May 29, 2024 08:35 AM NIRMALA PEREZ URINALYSIS Specimen Type: URINE No comment entered. Ordering Provider: JENNIFER ESPINOZA Report Released Date/Time: May 29, 2024 08:11 AM Reporting Lab: [facility] [id number] Performing Lab: [facility] [address] URINE COLOR LIGHT-YELLOW SPECIFIC GRAVITY 1.020 1.003-1.035 [...] NEGATIVE NEGATIVE May 29, 2024 08:29 AM NIRMALA PEREZ HEMOGLOBIN A1C Specimen Type: BLOOD Comment: [...] May 29, 2024 08:11 AM Reporting Lab: [facility] [id number] Performing Lab: [facility] [address] HEMOGLOBIN A1C 5.6 4.0-6.0 May 29, 2024 08:29 AM NIRMALA PEREZ LIPID PANEL,NON-FASTING Specimen Type: PLASMA No comment entered. Ordering Provider: JENNIFER ESPINOZA Report Released Date/Time: May 29, 2024 08:11 AM Reporting Lab: [facility] [phone] Performing Lab: [facility] [address] CHOLESTEROL 173 mg/dL <199 .HDL 59 mg/dL >40 LDL CALCULATION 99 mg/dL <99 VLDL CALCULATION 15 mg/dL <29 NON HDL CHOLESTEROL 114 mg/dL <129 TRIG(NON FASTING) 75 mg/dL <149 May 29, 2024 08:29 AM NIRMALA PEREZ TSH W/REFLEX TO FREE T4 Specimen Type: PLASMA No comment entered. Ordering Provider: JENNIFER ESPINOZA Report Released Date/Time: May 29, 2024 08:11 AM Reporting Lab: [facility] [id number] Performing Lab: [facility] [address] TSH 3.35 u[IU]/mL 0.35-4.94 May 29, 2024 08:29 AM NIRMALA PEREZ COMPREHENSIVE METABOLIC PANEL+MG Specimen Type: PLASMA No comment entered. Ordering Provider: JENNIFER ESPINOZA Report Released Date/Time: May 29, 2024 08:11 AM Reporting Lab: [facility] [phone] Performing Lab: [facility] [phone] CREATININE 0.8 mg/dL 0.7-1.2 UREA NITROGEN 15 [...] >90 >60 May 29, 2024 08:29 AM NIRMALA PEREZ CBC & DIFF Specimen Type: BLOOD Comment: Automated Differential Performed Ordering Provider: JENNIFER ESPINOZA Report Released Date/Time: May 29, 2024 08:11 AM Reporting Lab: [facility] [phone] Performing Lab: [facility] [address] WBC 5.1 4.0-11.0 RBC 4.61 4.60-6.20 HGB [...] EOS 0.1 0.0-0.5 ABS BASO 0.0 0.0-0.2 IG(META,MYELO,KS O) 0.2 ABS IMMATURE GRAN 0.0 0.0-0.1 Social History: Smoking Status (Most current) and Tobacco Use (All prior to encounter date) This section includes the most current, and the historical, smoking and tobacco- related health factors from the [place] facility where the Encounter took place. Current Smoking Status This section includes the most current smoking, or tobacco-related health factor, from the [place] facility where the Encounter took place. Date/Time Current Smoking Status Comment Ade ity Jun 15, 2022 12:04 PM VA-TOBACCO NEVER USED [facility] Tobacco Use History This section includes a history of the smoking, or tobacco-related health factors, that were collected on or before the date of the Encounter. The data comes from the [place] facility where the Encounter took place. Date/Time Smoking Status/Tobacco Use Comment F acility Oct 21, 2014 09:04 AM FORMER TOBACCO USER 7Y OR [facility] R [facility] Oct 20, 2013 08:37 AM FORMER TOBACCO USER 7Y OR [facility] R [facility] Encounter Notes: All associated encounter notes This section contains the clinical notes associated to the Encounter. Date/Time Encounter Note(s) Provider Source Jun 26, 2024 11:48 AM AUDIOLOGY NOTE: LOCAL TITLE: AUDIOLOGY CLINIC NOTE STANDARD TITLE: AUDIOLOGY NOTE DATE OF NOTE: JUN 26, 2024@11:48 ENTRY DATE: JUN 26, 2024@11:48:27 AUTHOR: JETT QUINTERO COSIGNER: GEE GARCÍA URGENCY: STATUS: COMPLETED SUBJECT: Hearing aid evaluation AUDIOLOGY CLINIC NOTE Has ADDENDA DIAGNOSIS: Encounter for exam of ears and hearing with other abnormal findings Encounter for fitting and adjustment of hearing aid Sensorineural hearing loss, bilateral Tinnitus, bilateral REASON FOR VISIT: THERAPEUTIC:HEARING AID EVALUATION, 60 minutes: HISTORY: was seen in the clinic today for a hearing evaluation. He reports that things have gone well with his P90 hearing aids, but that the earmolds make him feel plugged up and are uncomfortable by the end of the day. Because of this, he does not wear them all the time. He notices more hearing loss in his left ear than his right. He has a history of sudden sensorineural hearing loss in his left ear following a surgery. The [place] has bilateral tinnitus that can become bothersome at times. He is hopeful that hearing aids that work better for him can help. The [place] has started to notice more difficulty with communication, especially in group settings. The denied any significant otologic symptoms today. The was last seen in this clinic on 10/25/2020. The is Service [employer]cted for Hearing Loss/Tinnitus. [place] was unaccompanied. The currently wears the follow hearing aids: Hearing Aids (right and left): Fit on 10/25/2020. Make: Phonak Model: [employer] P90-RT Acoustics: 2M receivers, small vented domes (changed today from [employer]) Serial #s: [id number] Accessories: None, no cell phone connection PROCEDURES: OTOSCOPY Bilaterally: Free of excessive cerumen. Normal appearing TM's and canals. TYMPANOMETRY: RIGHT EAR: Type A Pressure: Normal Compliance: Normal Volume: Normal LEFT EAR: Type A Pressure: Normal Compliance: Normal Volume: Normal AUDIOMETRICS: Air conduction, Bone conduction, Speech testing Transducer: Insert phones, Circumaural headphones Reliability: good RIGHT EAR (Hz) 250 082 482 8853 1500 2000 3000 4000 6000 8000 Air: see Audiogram display under Tools->Audiology->ROES or see ARIANA database. Bone: see Audiogram display under Tools->Audiology->ROES or see ARIANA database. LEFT EAR (Hz) 250 048 858 2279 1500 2000 3000 4000 6000 8000 Air: see Audiogram display under Tools->Audiology->ROES or see ARIANA database. Bone: see Audiogram display under Tools->Audiology->ROES or see ARIANA database. 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 WORD RECOGNITION: /- word list Right Ear: 64% Level: 80* dB Left Ear: 68% Level: 80* dB SUMMARY: The [place]'s hearing has improved in the low frequencies and decreased in the high frequencies. RIGHT EAR: Type A tympanogram, consistent with normal middle ear function. Hearing within normal limits from 250-1000 Hz. Mild sloping to profound sensorineural hearing loss from 0776-8317 Hz. Moderately impaired word recognition. LEFT EAR: Type A tympanogram, consistent with normal middle ear function. Mild sensorineural hearing loss at 250 Hz, rising to hearing within normal limits from 250-1500 Hz. Mild sloping to severe sensorineural hearing loss from 6414-4845 Hz. Moderately impaired word recognition. AMPLIFICATION: - is a good candidate for hearing aid use. - was counseled on their type, degree and configuration of hearing loss. - The [place]'s hearing loss has progressed currently to the extent that it affects full participation in the provision of health care as noted today in our discussions. Hearing aids are medically indicated to treat the 's auditory conditions. - Different styles/technologies were reviewed with consideration given to 's listening situations and lifestyle needs. - The has good vision, memory, and dexterity for hearing aid use. - counseled on realistic expectations associated with adjusting to hearing aids, use of the devices, VA procedures and trial period. - [place] counseled on tinnitus, its physiologic basis, potential triggers, and treatment options/management strategies such as using a fan at night, avoiding silence, and trying to habituate to the sound. - Hearing aids ordered: Phonak Audeo I90-R, 2M receivers, small vented domes, color P1 - The uses an Android cell phone and is possibly interested in Bluetooth connection. HEARING AID REPAIR/MODIFY X2, SNs [id number]: - Given the 's improvement in low frequency hearing, cShells are not appropriate for his loss. cShells were removed and 2M receivers with small vented domes attached to the aids. - Hearing aids were cleaned and checked and are in good working order. FITTING/ORIENTATION/REPRO GRAMMING: - The [place]'s hearing aids were connected to the software and firmware update completed. - Acoustics were updated to reflect the change from cShells to domes. - Aids were reprogrammed to today's audiogram. The reported comfort and good sound quality with the new settings. PLAN: - will be scheduled for a 60-minute hearing aid fitting appointment. - [place] is in agreement with this plan. /Francesca Anderson CCC-A [employer] Signed: 06/26/2024 16:46 for JETT QUINTERO Audiology Student /Francesca Anderson CCC-A [employer] Cosigned: 06/26/2024 16:46 06/26/2024 ADDENDUM STATUS: COMPLETED with bilateral sensorineural loss and tinnitus was seen for a comprehensive audiologic evaluation, immittance testing and hearing aid evaluation. Results showed normal sloping to profound sensorineural hearing loss that was slightly worse in the left ear. Word recognition testing was fair (64% in the right ear, 68% in the left). Immittance testing was unremarkable. Hearing aid evaluation was performed and new aids were ordered. Replaced the C-Shells on 's old hearing aids with vented domes. noted an improvement and will try. ------ I am the provider for this encounter and participated in the evaluation of this patient. I confirmed the dominguez elements of the history and physical examination. Diagnosis and plan reflect my discussions and input. Pt was seen for a 60-minute appointment. /Francesca Anderson CCC-A [employer] Signed: 06/26/2024 16:47 GEE GARCÍA [facility]
--- OUTSIDE RECORDS SUMMARY | 2024-08-07 16:39 | XMS_ITS | Continuity of Care Document ---
Author Name [facility] Organization [facility] Care Team Providers Care Research Animal Facility Supervisor Name Role Phone [facility] Unavailable Unavailable Problems Combined list of problems from Department of Defense and Veterans Affairs facilities. It does not include entries that were removed or entered in error. Problem Status Onset Date Problem Type Date of Resolution Comments Source [place] - Actinic keratosis Active Condition [facility] Benign prostatic hypertrophy without outflow obstruction Active Condition [facility] Ex-smoker Active Condition Oct 21 Entered By: CADEN PINEDO Comment: Quit 1980. [facility] Family social history Active Condition Jun 20, 2022 Entered By: MARLENY HORTON ATHMaddi Comment: Family HistoryJun 20, 2022 Entered By: MARLENY HORTON ATHMaddi Comment: adopted,1 biological brother: living, HTNJun 20, 2022 Entered By: MARLENY HORTON ATHMaddi Comment: Social HistoryJun 20, 2022 Entered By: MARLENY HORTON Comment: Tobacco: quit 2021 Entered By: MARLENY HORTON Comment: Alcohol: 1 beer/day; enjoys both craft and domesticJun 20, 2022 Entered By: MARLENY HORTON Comment: Drug use: noneJun 20, 2022 Entered By: MARLENY HORTON Comment: Marital Status: , lives w/ spouse: Alize ,2 daughters (both local), 6 grandkidsNov 2021 Entered By: MARLENY HORTON Comment: 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; 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 [facility] Plantar fasciitis of right foot Active Condition [facility] Tinnitus Active Condition [facility] Diagnosis: ICD-10-CM H90.3 Sensorineural hearing loss, bilateral Active Diagnosis [facility] Diagnosis: ICD-10-CM Z01.118 Encntr for exam of ears and hearing w oth abnormal findings Active Diagnosis [facility] Diagnosis: ICD-10-CM Z95.1 Presence of aortocoronary bypass graft Active Diagnosis [facility] Diagnosis: ICD-10-CM L57.0 Actinic keratosis Active Diagnosis [facility] Diagnosis: ICD-10-CM Z00.00 Encntr for general adult medical exam w/o abnormal findings Active Diagnosis [facility] Medications Combined list of outpatient medications from Department of Defense and Veterans Affairs facilities.Medications provided include 1) outpatient medications from the last 15 months, and 2) patient-reported medications. Medication Details Route Status Patient Instructions Prescription Expires Prescription Number Last Dispense Date Ordering Provider Order Date Order Qty Source ASPIRIN 81MG TAB,CHEWABL E CHEW ONE TABLET BY MOUTH EVERY DAY ORAL ACTIVE 05/30/2025 [id number] Blake ESPINOZA M 2023 108 [facility] ASPIRIN 81MG TAB,CHEWABL E CHEW ONE TABLET BY MOUTH EVERY DAY ORAL DISCONT INUED 06/07/2024 [id number] NALLUSAMY ,VASUMATH I 2022 108 [facility] ATORVASTATI N CA 80MG TAB TAKE ONE TABLET BY MOUTH AT BEDTIME FOR CHOLESTE ROL ORAL ACTIVE 05/30/2025 [id number] 4 Blake ESPINOZA ONKEVIN M 2023 90 [facility] ATORVASTATI N CA 80MG TAB TAKE ONE TABLET BY MOUTH AT BEDTIME FOR CHOLESTE ROL ORAL DISCONT INUED 06/07/2024 [id number] 4 NALLUSAMY ,VASUMATH I 2023 90 [facility] ATORVASTATI N CA 80MG TAB TAKE ONE TABLET BY MOUTH AT BEDTIME FOR CHOLESTE ROL ORAL DISCONT INUED 06/21/2023 [id number] NALLUSAMY ,VASUMATH I 2021 90 [facility] NITROGLYCER IN 0.4MG TAB,SUBLING UAL DISSOLVE ONE TABLET UNDER THE TONGUE EVERY 5 MINUTES FOR UP TO 3 DOSES IF NEEDED FOR CHEST PAIN SUBLIN GUAL ACTIVE 05/30/2025 [id number] Blake ESPINOZATERESAGege M 2023 100 [facility] Immunizations Combined list of available immunizations from the Department of Defense and Veterans Affairs facilities. Immunization Series Date Given Administered By Site Reaction Lot Number CVX Code Drug Jewel Blocker And Sawyer Status Comments Source COVID-19 (PFIZER), MRNA, LNP-S, PF, GIL-SUCROSE, 30 MCG/0.3 ML (AGES 12+ YEARS) 2023 GREG CHRISTINA LEFT DELTO ID [id number] 309 complet ed [facility] TD (ADULT), 5 LF TETANUS TOXOID, PRESERVATIVE FREE, ADSORBED 2023 GREG CHRISTINA RIGHT DELTO ID [id number] 113 complet ed [facility] COVID-19 (PFIZER), MRNA, LNP-S, PF, GIL-SUCROSE, 30 MCG/0.3 ML (AGES 12+ YEARS) 1 2022 EAMON TOBIAS E RIGHT DELTO ID [id number] 309 complet ed [facility] COVID-19 (PFIZER), MRNA, LNP-S, BIVALENT BOOSTER, PF, 30 MCG/0.3 ML DOSE 1 2021 300 complet ed PFR; [id number]; 3 [facility] COVID-19 (PFIZER), MRNA, LNP-S, PF, 30 MCG/0.3 ML DOSE 3 2020 208 complet ed PFR; [id number]; 2 [facility] COVID-19 (MODERNA), MRNA, LNP-S, PF, 100 MCG/0.5 ML DOSE 2 2020 207 complet ed MOD: [id number]; 1 [facility] COVID-19 (MODERNA), MRNA, LNP-S, PF, 100 MCG/0.5 ML DOSE 1 2020 207 complet ed MOD; [id number]; 1 [facility] PNEUMOCOCCAL POLYSACCHARID E PPV23 2017 33 complet ed [employer], [id number], [facility] PNEUMOCOCCAL CONJUGATE PCV 13 2015 133 complet ed [facility] PNEUMOCOCCAL CONJUGATE PCV 13 2015 133 complet ed [facility] TDAP 2013 115 complet ed [employer]# [facility] TD (ADULT), 2 LF TETANUS TOXOID, PRESERVATIVE FREE, ADSORBED 2004 09 complet ed [facility] Results Combined list of recent chemistry, hematology and other laboratory results from Department of Defense and Veterans Affairs, ranging from 15 months to all on record, depending upon the facility. Order Name Results Value Reference Range Date Interpretation Specimen Comments Source OCCULT BLOOD FIT X1 SCREEN HEMOGLOBIN .GASTROINT ESTINAL.LO WER [PRESENCE] IN STOOL BY IMMUNOASSA Y Negative 06/02 Specimen Type: FECES No comment entered. Ordering Provider: CORI ESPINOZA Report Released Date/Time: May 29, 2024 08:11 AM Reporting Lab: [facility] [address] Performing Lab: [facility] [address] [facility] URINALYS IS COLOR OF URINE LIGHT-YE LLOW 05/29 Specimen Type: URINE No comment entered. Ordering Provider: CORI ESPINOZA Report Released Date/Time: May 29, 2024 08:11 AM Reporting Lab: [facility] [address] Performing Lab: [facility] [address] [facility] URINALYS IS SPECIFIC GRAVITY OF URINE 1.020 1.003 - 1.035 05/29 Specimen Type: URINE No comment entered. Ordering Provider: CORI ESPINOZA Report Released Date/Time: May 29, 2024 08:11 AM Reporting Lab: [facility] [address] Performing Lab: [facility] [address] [facility] URINALYS IS BILIRUBIN. TOTAL [PRESENCE] IN URINE BY TEST STRIP NEGATIVE 05/29 Specimen Type: URINE No comment entered. Ordering Provider: CORI ESPINOZA Report Released Date/Time: May 29, 2024 08:11 AM Reporting Lab: [facility] [address] Performing Lab: [facility] [address] [facility] URINALYS IS KETONES [MASS/VOLU ME] IN URINE BY TEST STRIP NEGATIVE 05/29 Specimen Type: URINE No comment entered. Ordering Provider: CORI ESPINOZA Report Released Date/Time: May 29, 2024 08:11 AM Reporting Lab: [facility] [address] Performing Lab: [facility] [address] [facility] URINALYS IS GLUCOSE [MASS/VOLU ME] IN URINE BY TEST STRIP NEGATIVE mg/dL <30 - 30 05/29 Specimen Type: URINE No comment entered. Ordering Provider: CORI ESPINOZA Report Released Date/Time: May 29, 2024 08:11 AM Reporting Lab: [facility] [address] Performing Lab: [facility] [address] [facility] URINALYS IS PROTEIN [MASS/VOLU ME] IN URINE BY TEST STRIP NEGATIVE mg/dL <20 - 20 05/29 Specimen Type: URINE No comment entered. Ordering Provider: CORI ESPINOZA Report Released Date/Time: May 29, 2024 08:11 AM Reporting Lab: [facility] [address] Performing Lab: [facility] [address] [facility] URINALYS IS PH OF URINE BY TEST STRIP 7.0 5.0 - 8.0 05/29 Specimen Type: URINE No comment entered. Ordering Provider: CORI ESPINOZA Report Released Date/Time: May 29, 2024 08:11 AM Reporting Lab: [facility] [address] Performing Lab: [facility] [address] [facility] URINALYS IS LEUKOCYTES [#/AREA] IN URINE SEDIMENT BY MICROSCOPY HIGH POWER FIELD 1 /[HPF] 0 - 7 05/29 Specimen Type: URINE No comment entered. Ordering Provider: CORI ESPINOZA Report Released Date/Time: May 29, 2024 08:11 AM Reporting Lab: [facility] [address] Performing Lab: [facility] [address] [facility] URINALYS IS BACTERIA [PRESENCE] IN URINE SEDIMENT BY LIGHT MICROSCOPY NONE SEEN 05/29 Specimen Type: URINE No comment entered. Ordering Provider: CORI ESPINOZA Report Released Date/Time: May 29, 2024 08:11 AM Reporting Lab: [facility] [address] Performing Lab: [facility] [address] [facility] URINALYS IS ERYTHROCYT ES [#/AREA] IN URINE SEDIMENT BY MICROSCOPY HIGH POWER FIELD 1 /[HPF] 0 - 3 05/29 Specimen Type: URINE No comment entered. Ordering Provider: CORI ESPINOZA Report Released Date/Time: May 29, 2024 08:11 AM Reporting Lab: [facility] [address] Performing Lab: [facility] [address] [facility] URINALYS IS APPEARANCE OF URINE CLEAR 05/29 Specimen Type: URINE No comment entered. Ordering Provider: CORI ESPINOZA Report Released Date/Time: May 29, 2024 08:11 AM Reporting Lab: [facility] [address] Performing Lab: [facility] [address] [facility] URINALYS IS EPITHELIAL CELLS.SQUA MOUS [#/AREA] IN URINE SEDIMENT BY MICROSCOPY HIGH POWER FIELD <1/[HPF] 05/29 Specimen Type: URINE No comment entered. Ordering Provider: CORI ESPINOZA Report Released Date/Time: May 29, 2024 08:11 AM Reporting Lab: [facility] [address] Performing Lab: [facility] [address] [facility] URINALYS IS HEMOGLOBIN [PRESENCE] IN URINE BY TEST STRIP NEGATIVE 05/29 Specimen Type: URINE No comment entered. Ordering Provider: CORI ESPINOZA Report Released Date/Time: May 29, 2024 08:11 AM Reporting Lab: [facility] [address] Performing Lab: [facility] [address] [facility] URINALYS IS NITRITE [PRESENCE] IN URINE BY TEST STRIP NEGATIVE 05/29 Specimen Type: URINE No comment entered. Ordering Provider: CORI ESPINOZA Report Released Date/Time: May 29, 2024 08:11 AM Reporting Lab: [facility] [address] Performing Lab: [facility] [address] [facility] URINALYS IS LEUKOCYTE ESTERASE [PRESENCE] IN URINE BY TEST STRIP NEGATIVE 05/29 Specimen Type: URINE No comment entered. Ordering Provider: CORI ESPINOZA Report Released Date/Time: May 29, 2024 08:11 AM Reporting Lab: [facility] [address] Performing Lab: [facility] [address] [facility] CBC & DIFF LEUKOCYTES [#/VOLUME] IN BLOOD BY AUTOMATED COUNT 5.1 4.0 - 11.0 05/29 Specimen Type: BLOOD Comment: Automated Differentia l Performed Ordering Provider: CORI ESPINOZA Report Released Date/Time: May 29, 2024 08:11 AM Reporting Lab: [facility] [address] Performing Lab: [facility] [address] [facility] CBC & DIFF ERYTHROCYT ES [#/VOLUME] IN BLOOD BY AUTOMATED COUNT 4.61 4.60 - 6.20 05/29 Specimen Type: BLOOD Comment: Automated Differentia l Performed Ordering Provider: CORI ESPINOZA Report Released Date/Time: May 29, 2024 08:11 AM Reporting Lab: [facility] [address] Performing Lab: [facility] [address] [facility] CBC & DIFF HEMOGLOBIN [MASS/VOLU ME] IN BLOOD 14.1 g/dL 13.5 - 17.9 05/29 Specimen Type: BLOOD Comment: Automated Differentia l Performed Ordering Provider: CORI ESPINOZA Report Released Date/Time: May 29, 2024 08:11 AM Reporting Lab: [facility] [address] Performing Lab: [facility] [address] [facility] CBC & DIFF HEMATOCRIT [VOLUME FRACTION] OF BLOOD BY AUTOMATED COUNT 43.8 41.0 - 54.0 05/29 Specimen Type: BLOOD Comment: Automated Differentia l Performed Ordering Provider: CORI ESPINOZA Report Released Date/Time: May 29, 2024 08:11 AM Reporting Lab: [facility] [address] Performing Lab: [facility] [address] [facility] CBC & DIFF MCV [ENTITIC VOLUME] BY AUTOMATED COUNT 95.0 fL 80.0 - 100.0 05/29 Specimen Type: BLOOD Comment: Automated Differentia l Performed Ordering Provider: CORI ESPINOZA Report Released Date/Time: May 29, 2024 08:11 AM Reporting Lab: [facility] [address] Performing Lab: [facility] [address] [facility] CBC & DIFF MCH [ENTITIC MASS] BY AUTOMATED COUNT 30.6 pg 27.0 - 33.0 05/29 Specimen Type: BLOOD Comment: Automated Differentia l Performed Ordering Provider: CORI ESPINOZA Report Released Date/Time: May 29, 2024 08:11 AM Reporting Lab: [facility] [address] Performing Lab: [facility] [address] [facility] CBC & DIFF MCHC [MASS/VOLU ME] BY AUTOMATED COUNT 32.2 g/dL 32.0 - 37.5 05/29 Specimen Type: BLOOD Comment: Automated Differentia l Performed Ordering Provider: CORI ESPINOZA Report Released Date/Time: May 29, 2024 08:11 AM Reporting Lab: [facility] [address] Performing Lab: [facility] [address] [facility] CBC & DIFF PLATELETS [#/VOLUME] IN BLOOD BY AUTOMATED COUNT 234 150 - 400 05/29 Specimen Type: BLOOD Comment: Automated Differentia l Performed Ordering Provider: CORI ESPINOZA Report Released Date/Time: May 29, 2024 08:11 AM Reporting Lab: [facility] [address] Performing Lab: [facility] [address] [facility] CBC & DIFF PLATELET MEAN VOLUME [ENTITIC VOLUME] IN BLOOD BY AUTOMATED COUNT 10.5 fL 9.1 - 13.0 05/29 Specimen Type: BLOOD Comment: Automated Differentia l Performed Ordering Provider: CORI ESPINOZA Report Released Date/Time: May 29, 2024 08:11 AM Reporting Lab: [facility] [address] Performing Lab: [facility] [address] [facility] CBC & DIFF NEUTROPHIL S/100 LEUKOCYTES IN BLOOD BY MANUAL COUNT 63.8 40.0 - 80.0 05/29 Specimen Type: BLOOD Comment: Automated Differentia l Performed Ordering Provider: CORI ESPINOZA Report Released Date/Time: May 29, 2024 08:11 AM Reporting Lab: [facility] [address] Performing Lab: [facility] [address] [facility] CBC & DIFF LYMPHOCYTE S/100 LEUKOCYTES IN BLOOD BY MANUAL COUNT 23.7 15.0 - 45.0 05/29 Specimen Type: BLOOD Comment: Automated Differentia l Performed Ordering Provider: CORI ESPINOZA Report Released Date/Time: May 29, 2024 08:11 AM Reporting Lab: [facility] [address] Performing Lab: [facility] [address] [facility] CBC & DIFF MONOCYTES/ 100 LEUKOCYTES IN BLOOD BY AUTOMATED COUNT 9.7 2.0 - 12.0 05/29 Specimen Type: BLOOD Comment: Automated Differentia l Performed Ordering Provider: CORI ESPINOZA Report Released Date/Time: May 29, 2024 08:11 AM Reporting Lab: [facility] [address] Performing Lab: [facility] [address] [facility] CBC & DIFF EOSINOPHIL S/100 LEUKOCYTES IN BLOOD BY AUTOMATED COUNT 1.8 0.0 - 6.0 05/29 Specimen Type: BLOOD Comment: Automated Differentia l Performed Ordering Provider: CORI ESPINOZA Report Released Date/Time: May 29, 2024 08:11 AM Reporting Lab: [facility] [address] Performing Lab: [facility] [address] [facility] CBC & DIFF BASOPHILS/ 100 LEUKOCYTES IN BLOOD BY MANUAL COUNT 0.8 0.0 - 2.0 05/29 Specimen Type: BLOOD Comment: Automated Differentia l Performed Ordering Provider: CORI ESPINOZA Report Released Date/Time: May 29, 2024 08:11 AM Reporting Lab: [facility] [address] Performing Lab: [facility] [address] [facility] CBC & DIFF ERYTHROCYT E DISTRIBUTI ON WIDTH [RATIO] BY AUTOMATED COUNT 13.2 11.5 - 14.5 05/29 Specimen Type: BLOOD Comment: Automated Differentia l Performed Ordering Provider: CORI ESPINOZA Report Released Date/Time: May 29, 2024 08:11 AM Reporting Lab: [facility] [address] Performing Lab: [facility] [address] [facility] CBC & DIFF LYMPHOCYTE S [#/VOLUME] IN BLOOD BY AUTOMATED COUNT 1.2 1.0 - 4.0 05/29 Specimen Type: BLOOD Comment: Automated Differentia l Performed Ordering Provider: CORI ESPINOZA Report Released Date/Time: May 29, 2024 08:11 AM Reporting Lab: [facility] [address] Performing Lab: [facility] [address] [facility] CBC & DIFF MONOCYTES [#/VOLUME] IN BLOOD BY AUTOMATED COUNT 0.5 0.1 - 1.0 05/29 Specimen Type: BLOOD Comment: Automated Differentia l Performed Ordering Provider: CORI ESPINOZA Report Released Date/Time: May 29, 2024 08:11 AM Reporting Lab: [facility] [address] Performing Lab: [facility] [address] [facility] CBC & DIFF NEUTROPHIL S [#/VOLUME] IN BLOOD BY AUTOMATED COUNT 3.2 2.0 - 7.7 05/29 Specimen Type: BLOOD Comment: Automated Differentia l Performed Ordering Provider: CORI ESPINOZA Report Released Date/Time: May 29, 2024 08:11 AM Reporting Lab: [facility] [address] Performing Lab: [facility] [address] [facility] CBC & DIFF EOSINOPHIL S [#/VOLUME] IN BLOOD BY AUTOMATED COUNT 0.1 0.0 - 0.5 05/29 Specimen Type: BLOOD Comment: Automated Differentia l Performed Ordering Provider: CORI ESPINOZA Report Released Date/Time: May 29, 2024 08:11 AM Reporting Lab: [facility] [address] Performing Lab: [facility] [address] [facility] CBC & DIFF BASOPHILS [#/VOLUME] IN BLOOD BY AUTOMATED COUNT 0.0 0.0 - 0.2 05/29 Specimen Type: BLOOD Comment: Automated Differentia l Performed Ordering Provider: CORI ESPINOZA Report Released Date/Time: May 29, 2024 08:11 AM Reporting Lab: [facility] [address] Performing Lab: [facility] [address] [facility] CBC & DIFF IG(META,MY DELLA,PRO) 0.2 05/29 Specimen Type: BLOOD Comment: Automated Differentia l Performed Ordering Provider: CORI ESPINOZA Report Released Date/Time: May 29, 2024 08:11 AM Reporting Lab: [facility] [address] Performing Lab: [facility] [address] [facility] CBC & DIFF IMMATURE GRANULOCYT ES [PRESENCE] IN BLOOD BY AUTOMATED COUNT 0.0 0.0 - 0.1 05/29 Specimen Type: BLOOD Comment: Automated Differentia l Performed Ordering Provider: CORI ESPINOZA Report Released Date/Time: May 29, 2024 08:11 AM Reporting Lab: [facility] [address] Performing Lab: [facility] [address] [facility] COMPREHE NSIVE METABOLI C PANEL+MG CREATININE [MASS/VOLU ME] IN SERUM OR PLASMA 0.8 mg/dL 0.7 - 1.2 05/29 Specimen Type: PLASMA No comment entered. Ordering Provider: CORI ESPINOZA Report Released Date/Time: May 29, 2024 08:11 AM Reporting Lab: [facility] [address] Performing Lab: [facility] [address] [facility] COMPREHE NSIVE METABOLI C PANEL+MG UREA NITROGEN [MASS/VOLU ME] IN SERUM OR PLASMA 15 mg/dL 8 - 26 05/29 Specimen Type: PLASMA No comment entered. Ordering Provider: CORI ESPINOZA Report Released Date/Time: May 29, 2024 08:11 AM Reporting Lab: [facility] [address] Performing Lab: [facility] [address] [facility] COMPREHE NSIVE METABOLI C PANEL+MG GLUCOSE [MASS/VOLU ME] IN SERUM OR PLASMA 88 mg/dL 70 - 100 05/29 Specimen Type: PLASMA No comment entered. Ordering Provider: CORI ESPINOZA Report Released Date/Time: May 29, 2024 08:11 AM Reporting Lab: [facility] [address] Performing Lab: [facility] [address] [facility] COMPREHE NSIVE METABOLI C PANEL+MG SODIUM [MOLES/VOL UME] IN SERUM OR PLASMA 141 mmol/L 136 - 145 05/29 Specimen Type: PLASMA No comment entered. Ordering Provider: CORI ESPINOZA Report Released Date/Time: May 29, 2024 08:11 AM Reporting Lab: [facility] [address] Performing Lab: [facility] [address] [facility] COMPREHE NSIVE METABOLI C PANEL+MG POTASSIUM [MOLES/VOL UME] IN SERUM OR PLASMA 4.2 mmol/L 3.5 - 5.1 05/29 Specimen Type: PLASMA No comment entered. Ordering Provider: CORI ESPINOZA Report Released Date/Time: May 29, 2024 08:11 AM Reporting Lab: [facility] [address] Performing Lab: [facility] [address] [facility] COMPREHE NSIVE METABOLI C PANEL+MG CHLORIDE [MOLES/VOL UME] IN SERUM OR PLASMA 108 mmol/L 98 - 107 05/29 H Specimen Type: PLASMA No comment entered. Ordering Provider: CORI ESPINOZA Report Released Date/Time: May 29, 2024 08:11 AM Reporting Lab: [facility] [address] Performing Lab: [facility] [address] [facility] COMPREHE NSIVE METABOLI C PANEL+MG CARBON DIOXIDE, TOTAL [MOLES/VOL UME] IN SERUM OR PLASMA 24 mmol/L 22 - 29 05/29 Specimen Type: PLASMA No comment entered. Ordering Provider: CORI ESPINOZA Report Released Date/Time: May 29, 2024 08:11 AM Reporting Lab: [facility] [address] Performing Lab: [facility] [address] [facility] COMPREHE NSIVE METABOLI C PANEL+MG CALCIUM [MASS/VOLU ME] IN SERUM OR PLASMA 9.5 mg/dL 8.4 - 10.2 05/29 Specimen Type: PLASMA No comment entered. Ordering Provider: CORI ESPINOZA Report Released Date/Time: May 29, 2024 08:11 AM Reporting Lab: [facility] [address] Performing Lab: [facility] [address] [facility] COMPREHE NSIVE METABOLI C PANEL+MG PROTEIN [MASS/VOLU ME] IN SERUM OR PLASMA 6.7 g/dL 6.4 - 8.3 05/29 Specimen Type: PLASMA No comment entered. Ordering Provider: CORI ESPINOZA Report Released Date/Time: May 29, 2024 08:11 AM Reporting Lab: [facility] [address] Performing Lab: [facility] [address] [facility] COMPREHE NSIVE METABOLI C PANEL+MG ALBUMIN [MASS/VOLU ME] IN SERUM OR PLASMA 4.1 g/dL 3.5 - 5.2 05/29 Specimen Type: PLASMA No comment entered. Ordering Provider: CORI EPSINOZA Report Released Date/Time: May 29, 2024 08:11 AM Reporting Lab: [facility] [address] Performing Lab: [facility] [address] [facility] COMPREHE NSIVE METABOLI C PANEL+MG BILIRUBIN. TOTAL [MASS/VOLU ME] IN SERUM OR PLASMA 0.7 mg/dL 0.2 - 1.2 05/29 Specimen Type: PLASMA No comment entered. Ordering Provider: CORI ESPINOZA Report Released Date/Time: May 29, 2024 08:11 AM Reporting Lab: [facility] [address] Performing Lab: [facility] [address] [facility] COMPREHE NSIVE METABOLI C PANEL+MG MAGNESIUM [MASS/VOLU ME] IN SERUM OR PLASMA 2.0 mg/dL 1.6 - 2.6 05/29 Specimen Type: PLASMA No comment entered. Ordering Provider: CORI ESPINOZA Report Released Date/Time: May 29, 2024 08:11 AM Reporting Lab: [facility] [address] Performing Lab: [facility] [address] [facility] COMPREHE NSIVE METABOLI C PANEL+MG ANION GAP IN SERUM OR PLASMA 9 mmol/L 5 - 15 05/29 Specimen Type: PLASMA No comment entered. Ordering Provider: CORI ESPINOZA Report Released Date/Time: May 29, 2024 08:11 AM Reporting Lab: [facility] [address] Performing Lab: [facility] [address] [facility] COMPREHE NSIVE METABOLI C PANEL+MG ALKALINE PHOSPHATAS E [ENZYMATIC ACTIVITY/V OLUME] IN SERUM OR PLASMA 105 U/L 40 - 150 05/29 Specimen Type: PLASMA No comment entered. Ordering Provider: CORI ESPINOZA Report Released Date/Time: May 29, 2024 08:11 AM Reporting Lab: [facility] [address] Performing Lab: [facility] [address] [facility] COMPREHE NSIVE METABOLI C PANEL+MG ALANINE AMINOTRANS FERASE [ENZYMATIC ACTIVITY/V OLUME] IN SERUM OR PLASMA 20 U/L <44 - 44 05/29 Specimen Type: PLASMA No comment entered. Ordering Provider: CORI ESPINOZA Report Released Date/Time: May 29, 2024 08:11 AM Reporting Lab: [facility] [facility] [address] Performing Lab: [facility] [address] [facility] COMPREHE NSIVE METABOLI C PANEL+MG ASPARTATE AMINOTRANS FERASE [ENZYMATIC ACTIVITY/V OLUME] IN SERUM OR PLASMA 26 U/L 11 - 34 05/29 Specimen Type: PLASMA No comment entered. Ordering Provider: CORI ESPINOZA Report Released Date/Time: May 29, 2024 08:11 AM Reporting Lab: [facility] [address] Performing Lab: [facility] [address] [facility] COMPREHE NSIVE METABOLI C PANEL+MG GLOMERULAR FILTRATION RATE/1.73 SQ M.PREDICTE D [VOLUME RATE/AREA] IN SERUM, PLASMA OR BLOOD BY CREATININE -BASED FORMULA (CKD-EPI 2020) >90 60 05/29 Specimen Type: PLASMA No comment entered. Ordering Provider: CORI ESPINOZA Report Released Date/Time: May 29, 2024 08:11 AM Reporting Lab: [facility] [address] Performing Lab: [facility] [address] [facility] HEMOGLOB IN A1C HEMOGLOBIN A1C/HEMOGL OBIN.TOTAL IN BLOOD 5.6 4.0 - 6.0 05/29 Specimen Type: BLOOD Comment: Values obtained from A1C measurement s can vary. For typical A1C assays, a reported value of 7.0 could actually be between 6.7 and 7.3 if measured by a reference method. A reported value of 9.0 could actually be between 8.7 and 9.3. Ref: http://www. ngsp.org/[place] Pdata.asp Ordering Provider: CORI ESPINOZA Report Released Date/Time: May 29, 2024 08:11 AM Reporting Lab: [facility] [address] Performing Lab: [facility] [address] [facility] LIPID PANEL,NO N-FASTIN G CHOLESTERO L [MASS/VOLU ME] IN SERUM OR PLASMA 173 mg/dL <199 - 199 05/29 Specimen Type: PLASMA No comment entered. Ordering Provider: CORI ESPINOZA Report Released Date/Time: May 29, 2024 08:11 AM Reporting Lab: [facility] [address] Performing Lab: [facility] [address] [facility] LIPID PANEL,NO N-FASTIN G CHOLESTERO L IN HDL [MASS/VOLU ME] IN SERUM OR PLASMA 59 mg/dL 40 05/29 Specimen Type: PLASMA No comment entered. Ordering Provider: CORI ESPINOZA Report Released Date/Time: May 29, 2024 08:11 AM Reporting Lab: [facility] [address] Performing Lab: [facility] [address] [facility] LIPID PANEL,NO N-FASTIN G CHOLESTERO L IN LDL [MASS/VOLU ME] IN SERUM OR PLASMA BY CALCULATIO N 99 mg/dL <99 - 99 05/29 Specimen Type: PLASMA No comment entered. Ordering Provider: CORI ESPINOZA Report Released Date/Time: May 29, 2024 08:11 AM Reporting Lab: [facility] [address] Performing Lab: [place] [address] [facility] LIPID PANEL,NO N-FASTIN G CHOLESTERO L IN VLDL [MASS/VOLU ME] IN SERUM OR PLASMA BY CALCULATIO N 15 mg/dL <29 - 29 05/29 Specimen Type: PLASMA No comment entered. Ordering Provider: CORI ESPINOZA Report Released Date/Time: May 29, 2024 08:11 AM Reporting Lab: [facility] [address] Performing Lab: [place] [address] [facility] LIPID PANEL,NO N-FASTIN G CHOLESTERO L NON HDL [MASS/VOLU ME] IN SERUM OR PLASMA 114 mg/dL <129 - 129 05/29 Specimen Type: PLASMA No comment entered. Ordering Provider: CORI ESPINOZA Report Released Date/Time: May 29, 2024 08:11 AM Reporting Lab: [facility] [address] Performing Lab: [facility] [address] [facility] LIPID PANEL,NO N-FASTIN G TRIGLYCERI DE [MASS/VOLU ME] IN SERUM OR PLASMA 75 mg/dL <149 - 149 05/29 Specimen Type: PLASMA No comment entered. Ordering Provider: CORI ESPINOZA Report Released Date/Time: May 29, 2024 08:11 AM Reporting Lab: [facility] [address] Performing Lab: [facility] [address] [facility] TSH W/REFLEX TO FREE T4 THYROTROPI N [UNITS/VOL UME] IN SERUM OR PLASMA 3.35 u[IU]/mL 0.35 - 4.94 05/29 Specimen Type: PLASMA No comment entered. Ordering Provider: CORI ESPINOZA Report Released Date/Time: May 29, 2024 08:11 AM Reporting Lab: [facility] [address] Performing Lab: [facility] [address] [facility] OCCULT BLOOD FIT X1 SCREEN HEMOGLOBIN .GASTROINT ESTINAL.LO WER [PRESENCE] IN STOOL BY IMMUNOASSA Y Negative 06/12 Specimen Type: FECES No comment entered. Ordering Provider: Owen HORTON Report Released Date/Time: Jun 07, 2023 01:27 PM Reporting Lab: [facility] [address] Performing Lab: [facility] [address] [facility] CBC LEUKOCYTES [#/VOLUME] IN BLOOD BY AUTOMATED COUNT 5.25 10*3/uL 4.0 - 11.0 06/07 Specimen Type: BLOOD No comment entered. Ordering Provider: Owen HORTON Report Released Date/Time: Jun 07, 2023 01:28 PM Reporting Lab: [facility] [address] Performing Lab: [facility] [address] [facility] CBC ERYTHROCYT ES [#/VOLUME] IN BLOOD BY AUTOMATED COUNT 4.32 10*6/uL 4.6 - 6.2 06/07 L Specimen Type: BLOOD No comment entered. Ordering Provider: Owen HORTON Report Released Date/Time: Jun 07, 2023 01:28 PM Reporting Lab: [facility] [address] Performing Lab: [facility] [address] [facility] CBC HEMOGLOBIN [MASS/VOLU ME] IN BLOOD 13.6 g/dL 13.5 - 17.9 06/07 Specimen Type: BLOOD No comment entered. Ordering Provider: Owen HORTON Report Released Date/Time: Jun 07, 2023 01:28 PM Reporting Lab: [facility] [address] Performing Lab: [facility] [address] [facility] CBC HEMATOCRIT [VOLUME FRACTION] OF BLOOD BY AUTOMATED COUNT 42.1 41 - 54 06/07 Specimen Type: BLOOD No comment entered. Ordering Provider: Owen HORTON Report Released Date/Time: Jun 07, 2023 01:28 PM Reporting Lab: [facility] [address] Performing Lab: [facility] [address] [facility] CBC MCV [ENTITIC VOLUME] BY AUTOMATED COUNT 97.5 fL 80 - 100 06/07 Specimen Type: BLOOD No comment entered. Ordering Provider: Owen HORTON Report Released Date/Time: Jun 07, 2023 01:28 PM Reporting Lab: [facility] [address] Performing Lab: [facility] [address] [facility] CBC MCH [ENTITIC MASS] BY AUTOMATED COUNT 31.5 pg 27 - 33 06/07 Specimen Type: BLOOD No comment entered. Ordering Provider: Owen HORTON Report Released Date/Time: Jun 07, 2023 01:28 PM Reporting Lab: [facility] [address] Performing Lab: [facility] [address] [facility] CBC MCHC [MASS/VOLU ME] BY AUTOMATED COUNT 32.3 g/dL 32.0 - 37.5 06/07 Specimen Type: BLOOD No comment entered. Ordering Provider: Owen HORTON Report Released Date/Time: Jun 07, 2023 01:28 PM Reporting Lab: [facility] [address] Performing Lab: [facility] [address] [facility] CBC PLATELETS [#/VOLUME] IN BLOOD BY AUTOMATED COUNT 244 10*3/uL 150 - 400 06/07 Specimen Type: BLOOD No comment entered. Ordering Provider: Owen HORTON Report Released Date/Time: Jun 07, 2023 01:28 PM Reporting Lab: [facility] [address] Performing Lab: [facility] [address] [facility] CBC PLATELET MEAN VOLUME [ENTITIC VOLUME] IN BLOOD BY AUTOMATED COUNT 10.2 fL 7.4 - 10.4 06/07 Specimen Type: BLOOD No comment entered. Ordering Provider: Owen HORTON Report Released Date/Time: Jun 07, 2023 01:28 PM Reporting Lab: [facility] [address] Performing Lab: [facility] [address] [facility] ERYTHROCYT E DISTRIBUTI ON WIDTH [RATIO] BY AUTOMATED COUNT 13.7 11.5 - 14.5 06/07 Specimen Type: BLOOD No comment entered. Ordering Provider: Owen HORTON Report Released Date/Time: Jun 07, 2023 01:28 PM Reporting Lab: [facility] [address] Performing Lab: [facility] [address] [facility] HEMOGLOB IN A1C HEMOGLOBIN A1C/HEMOGL OBIN.TOTAL IN BLOOD 5.5 4.0 - 6.0 06/07 Specimen Type: BLOOD Comment: Values obtained from A1C measurement s can vary. For typical A1C assays, a reported value of 7.0 could actually be between 6.7 and 7.3 if measured by a reference method. A reported value of 9.0 could actually be between 8.7 and 9.3. Ref: http://www. ngsp.org/[place] Pdata.asp Ordering Provider: Owen HORTON Report Released Date/Time: Jun 20, 2022 09:29 AM Reporting Lab: [facility] [address] Performing Lab: [facility] [address] [facility] Vital Signs Combined list of inpatient and outpatient Vital Signs from Department of Defense and Veterans Affairs, ranging from 12 months to all on record, depending upon the facility. Vital Sign Value Date Comments Source SYSTOLIC BLOOD PRESSURE 124 05/29/2024 07:48:37 [facility] DIASTOLIC BLOOD PRESSURE 74 05/29/2024 07:48:37 [facility] PULSE OXIMETRY 97 05/29/2024 07:48:37 [facility] WEIGHT 185 05/29/2024 07:48:37 [facility] BMI 27kg/m2 05/29/2024 07:48:37 [facility] PAIN 0 05/29/2024 07:48:37 [facility] HEIGHT 69.5 05/29/2024 07:48:37 [facility] TEMPERATURE 96.7 05/29/2024 07:48:37 [facility] PULSE 65 05/29/2024 07:48:37 [facility] RESPIRATION 14 05/29/2024 07:48:37 [facility] Encounters Combined list of: 1) Encounters from Department of [facility] Affairs facilities going back up to thelast 18 months. 2) Encounters from the Department of [email or web address] facilities going back up to 280 months. Location Location Details Encounter Type Encounter Number Reason For Visit Attending Provider ADM Date DC Date Status Disposition Source [place] [facility] Outpatient Encounter [id number] 05/31 [facility] ADMN SARSCOV2 VACC 1 DOSE [id number] Diagnos is: ICD-10- CM Z00.00 Encntr for general adult medical exam w/o abnorma l finding s
ADELINA HORTON 06/07 [facility] [place] [facility] Outpatient Encounter [id number] 07/02 [facility] [place] [facility] OFFICE O/P EST LOW 20-29 MIN [id number] Diagnos is: ICD-10- CM L57.0 Actinic keratos is
INDIGO RODRIGUEZ ERT S 07/05 [facility] [place] [facility] Outpatient Encounter [id number] SA RA Carla CASTRO 10/17 [facility] [place] [facility] Outpatient Encounter [id number] 05/15 [facility] [place] [facility] Outpatient Encounter [id number] 05/29 [facility] Outpatient Encounter [id number] RAÚL ESPINOZA NNIE M 05/29 [facility] Outpatient Encounter [id number] 05/29 [facility] OFFICE O/P EST HI 40 MIN [id number] Diagnos is: ICD-10- CM Z95.1 Presenc e of aortoco ronary bypass graft<b r/> RAÚL ESPINOZA NNIE M 05/29 [facility] Encounter [id number] 05/30 [facility] Outpatient Encounter [id number] 06/11 [facility] HEARING AID REPAIR/MOD IFYING [id number] Diagnos is: ICD-10- CM Z01.118 Encntr for exam of ears and hearing w oth abnorma l finding s
MANSOOR GARCÍAERLY A 06/26 [facility] Outpatient Encounter [id number] 07/21 [facility] CONFORMITY EVALUATION [id number] Diagnos is: ICD-10- CM H90.3 Sensori neural hearing loss, bilater al
MANSOOR GARCÍA MBERLY A 07/24 [facility] Outpatient Encounter [id number] 07/28 [facility] Social History Combined list of available smoking, tobacco, and other social history from Department of Defense and [facility] Affairs facilities. Social History Type Response Date Comment Sourc e Tobacco smoking status NHIS VA-TOBACCO QUIT 15 YRS OR MORE 05/29/2024 [facility] History of tobacco use IN-TOBACCO FORMER USER 05/29/2024 [facility] History of tobacco use VA-TOBACCO FORMER USER 06/07/2023 [facility] History of tobacco use IN-TOBACCO NEVER USED 06/15/2022 [facility] History of tobacco use VA-TOBACCO FORMER USER 05/24/2021 [facility] History of tobacco use VA-TOBACCO QUIT 1 5 YRS OR MORE 04/21/2020 [facility] History of tobacco use VA-TOBACCO QUIT 1 5 YRS OR MORE 10/22/2018 [facility] History of tobacco use FORMER TOBACCO US ER 7Y OR GREATER 12/13/2017 [facility] History of tobacco use FORMER TOBACCO US ER 7Y OR GREATER 12/13/2016 [facility] History of tobacco use FORMER TOBACCO US ER 7Y OR GREATER 09/29/2015 [facility] History of tobacco use FORMER TOBACCO US ER 7Y OR GREATER 10/21/2014 [facility] History of tobacco use FORMER TOBACCO US ER 7Y OR GREATER 10/20/2013 [facility] Plan of Care List of future care activities from Department of Veterans Affairs facilities. Additional future care activities may be listed in the Assessment and Plan section. Date/Time Care Activity Care Activity Detail Facili ty 09/30/2024 AMBULATORY - SURGERY AMBULATORY - SURGERY [facility]
--- OUTSIDE RECORDS SUMMARY | 2024-08-07 16:40 | XMS_ITS | Clinical Summary ---
Author Organization [facility] Address [address], [place] [address] Care Team Providers Care Technology Support Analyst Name Role Phone Unavailable Primary Care Provider Unavailabl e Source Comments You are receiving this document as you are listed as the primary care provider,follow-up provider, or the patient has been referred to you for consultation.This is in compliance with the Medicare andMedicaid EHR Incentive Program,which states Providers who transition their patient to another setting of careor provider of care or refers their patient to another provider of care shouldprovide summary care record for each transition of care or referral. [facility] Allergies No known active allergies Medications Medication Sig Dispensed Refills Start Date End Date Status atorvastatin (LIPITOR) 20 MG tablet Take 20 mg by mouth daily. Active meclizine (ANTIVERT) 25 MG tablet Take 1 Tablet by mouth three times a day as needed for Dizziness/Vertigo . 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 Pulse 67 07/13/2020 2:59 PM LEATHER REPAIRER Temperature - - Respiratory Rate 17 07/13/2020 2:47 PM 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 Oxygen Saturation - - Inhaled Oxygen Concentration - - Weight 85.7 kg (189 lb) 07/13/2020 2:47 PM LEATHER REPAIRER Height - - Body Mass Index - - Plan of Treatment Health Maintenance Due Date Last Done Comments Colon Cancer Screening Plan Due 1950 Hep C Screening (Preventive Services) 1950 Medicare Welcome Visit 1950 Cholesterol 1985 Zoster/Shingles (1 of 2) 2000 DTaP/Tdap/Td (1 - Tdap) 10/25/2004 10/24/2004 Pneumococcal 65+ Yrs (2 - PP SV23 or PCV20) 04/27/2017 04/27/2016 COVID-19 Vaccine (1 - 2023-2 5 season) 2024 Influenza (#1) 2024 RSV (1 - 1-dose 75+ series) 2025 HepA Aged Out No longer eligi ble based on patient's age to complete this topic HepB Aged Out No longer eligi ble based on patient's age to complete this topic Hib Aged Out No longer eligi ble based on patient's age to complete this topic IPV (Polio) Aged Out No longer eligi ble based on patient's age to complete this topic MCV4 Aged Out No longer eligi ble based on patient's age to complete this topic [id number] [place] [address]
--- OUTSIDE RECORDS SUMMARY | 2024-08-07 16:41 | XMS_ITS ---
Author Organization [facility] Address [address] [place] [address] Care Team Providers Care Junior Copywriter Name Role Phone Unavailable Unavailable Unavailable Surgery Details Not on file Complications Check Surgery Details section. Procedure Estimated Blood Loss Check Surgery Details section. Procedure Findings Check Surgery Details section. Procedure Specimens Taken Check Surgery Details section.
--- OUTSIDE RECORDS SUMMARY | 2024-08-07 16:41 | XMS_ITS | Clinical Summary ---
Author Organization [facility] Address [address] [place] [address] Care Team Providers Care Air Liaison And Special Staff Name Role Phone Ary Oconnor M.D. Primary Care Provider [phone] Source Comments Patient records contain information from all sites at [facility]. For routine questions regarding patient records, call [phone] during business hours, M-F 8:00 AM - 5:00 PM Central Time. Record requests for emergency care only can be directed to [phone] at any time.[facility] Allergies No known active allergies Medications acetaminophen (TYLENOL) 325 mg tablet Take 2 tablets (650 mg total) by mouth every 6 (six) hours as needed for pain. 03/16/2021 Active aspirin 81 mg chewable tablet Chew 1 tablet (81 mg total) daily. 03/17/2021 Active nitroglycerin (NITROSTAT) 0.[address] 1 tablet (0.4 mg total) under the tongue every 5 (five) minutes as needed for chest pain. May repeat every 5 minutes for up to 3 doses 100 tablet 11 04/15/2021 Active atorvastatin (LIPITOR) 80 mg tabletIndicatio ns:ST Elevation Myocardial Infarction Involving Right Coronary Artery (HCC) Take 1 tablet (80 mg total) by mouth daily. 90 tablet 3 04/25/2022 Active ibuprofen (ADVIL,MOTRIN) 200 mg capsule Take 600 mg by mouth every 6 (six) hours as needed for pain. Active methylPREDNISol one (MEDROL DOSEPAK) 4 mg tablet Take as directed on package. 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 Emeterio Esparza M.D. Primary Lulu Howard M.B.B.SJessica Scrap Hooker Bypass Coronary Artery Graft Status Post 021 Anemia 03/10/2021 ST Elevation Myocardial Infa rction Involving Right Coronary Artery 03/08/2021 Hyperlipidemia Mixed 07/22/2019 Arthritis Hip 07/22/2019 Keratosis Actinic 07/22/2019 Nodule Prostate 07/22/2019 Personal History Of Nicotine Dependence 07/22/20 19 Stone Urinary Personal History 07/22/2019 Tinnitus Right 07/22/2019 Resolved Problems Problem Noted Date Diagnosed Date Resolved Date Pain Postoperative 03/12/2021 1 Postprocedural Hypotension 03/12/2021 0 03/15/2021 Encounters Date Type Department Care Team Description 07/09/2024 Orders Only [facility] MNT Ary Oconnor M.D. Screening Examination Diabetes Mellitus; Screening Abdominal Aortic Aneurysm from Last 3 Months Immunizations Name Administration Dates Next Due PCV13 04/27/2016 Td (Adult), adsorbed 10/24/2004 Tdap 01/05/2010 Social History Tobacco Use Types Packs/Day Years Used Date Smoking Tobacco: Former Cigarettes Q uit: 1981 Smokeless Tobacco: Never Tobacco Cessation:Counseling Given: Not Answered Alcohol Use Standard Drinks/Week Comments Yes 0 (1 standard drink = 0.6 oz pur e alcohol) 1 a day Social Connection and Isolation Panel [NHANES] A nswer Date Recorded In a typical week, how many times do you talk on the phone with family, friends, or neighbors? Patient declined 04/10/2022 How often do you get togethe r with friends or relatives? Patient declined 04/10/2022 How often do you attend adventism or church serv ices? Patient declined 04/10/2022 Do you belong to any clubs o r organizations such as adventism groups, unions, fraternal or athletic groups, or school groups? Patient declined 04/10/2022 How often do you attend meet ings of the clubs or organizations you belong to? Patient declined 04/10/2022 Marital Status Not on file 04/10/2022 AUDIT-C Answer Date Recorded Q1: How often do you have a drink containing alc ohol? Patient declined 04/10/2022 Average Number of Drinks Not on file 022 Frequency of Binge Drinking Not on file 12/2021 PHQ-2 Answer Date Recorded PHQ-2 Score 0 08/21/2022 [facility] [place] of Occupat ional Health - Occupational Stress Questionnaire Answer Date Recorded Do you feel stress - tense, restless, nervous, or anxious, or unable to sleep at night because your mind is troubled all the time - these days? Not at all 04/10/2022 Exercise Vital Sign Answer Date Recorde d On average, how many days pe r week do you engage in moderate to strenuous exercise (like a brisk walk)? 2 days 04/10/2022 On average, how many minutes do you engage in exercise at this level? 30 min 04/10/2022 PRAPARE - Transportation Answer Date Re corded In the past 12 months, has l ack of transportation kept you from medical appointments or from getting medications? No 12/2021 In the past 12 months, has l ack of transportation kept you from meetings, work, or from getting things needed for daily living? No 04/10/2022 Housing Stability Vital Sign Answer Osmel e Recorded In the last 12 months, was t here a time when you were not able to pay the mortgage or rent on time? No 04/10/2022 In the last 12 months, how many places have you lived? 1 04/10/2022 In the last 12 months, was t here a time when you did not have a steady place to sleep or slept in a [place] [facility] [place] facility (including now)? No 04/10/2022 Nutrition Answer Date Recorded On average, how many serving s of fruits and vegetables do you eat per day (serving size is equal to 1 cup or approximately the size of a tennis ball)? 0-1 04/10/2022 Dental Answer Date Recorded Dental: Regular Dentist Unknown 03/08/20 Employment Answer Date Recorded Employment status Retired 04/10/2022 Sex and Gender Information Value Date Recorded Sex Assigned at Male 04/10/2022 6:49 PM CDT Legal Sex Male 4:32 PM CDT Gender Identity Male 04/10/2022 6:49 PM CDT Sexual Orientation Straight 04/10/2022 6: 49 PM CDT Last Filed Vital Signs Vital Sign Reading Time Taken Comments Blood Pressure 144/70 12/14/2023 8:49 AM CDT Pulse 78 12/11/2023 9:15 AM CDT Temperature 36.2 C (97.1 F) 12/11/2023 9:15 AM CDT Respiratory Rate 14 12/11/2023 9:15 AM CDT Oxygen Saturation 98% 12/14/2023 8:49 AM CDT Inhaled Oxygen Concentration - - Weight 83.6 kg (184 lb 4.9 oz) 12/11/2023 9:15 A M CDT Height 176.3 cm (5' 9.41) 12/14/2023 8:49 AM CD T Body Mass Index 26.9 05/09/2023 4:15 PM CDT Plan of Treatment Health Maintenance Due Date Last Done Comments Abdominal Aortic Aneurysm (AAA) Screen 1950 CT Colonography 1950 Cologuard 1950 FIT 1950 Hepatitis C Screening 1950 Visit: Medicare Annual Wellness 1950 Zoster Vaccines (1 of 2) 2000 RSV vaccine - (32-36 weeks) or 60+ years (1 - Risk 60-74 years 1-dose series) 2010 Pneumococcal vaccine (50+ years) (2 of 2 - PPSV23) 06/22/2016 04/27/2016 DTaP,Tdap,and Td Vaccines (2 - Td or Tdap) 01/06/2020 01/05/2010, 10/24/2004 Depression Screening (Annual PHQ-2) 08/06/2023 Fall Risk Screen (Annual) 08/06/2023 Office Visit for Blood Pressure Check / Re-check 03/15/2024 12/14/2023 Fasting Glucose for Diabetes Screening 03/23/2024 03/23/2021, 03/16/2021, 03/15/2021, Additional history exists COVID-19 Vaccine ( season) 2024 06/07/2023 Influenza Vaccine (#1) 2024 Visit: Annual, age 65+ (or Medicare and <65) 12/10/2024 12/11/2023 Lipid (Cholesterol) Screening 04/21/2027 04/21/2022, 03/09/2021 Colonoscopy 05/31/2031 05/31/2021 (Perf ormed elsewhere) Colorectal Cancer Screening 05/31/2031 IPV Vaccines Aged Out No longer eligi ble based on patient's age to complete this topic Medical Devices Implanted Type Area Steam Powerplant Supervisor Device Identifier Shelf Expiration Date Model / Serial / Lot Clp Hrzn Ti 24 Clp Sm Red - [id number] Implanted:Qty : 1 on 03/11/2021 by Emeterio Esparza M.D. at [facility] Hardware e.g. pins/screws/ rods N/A: [employer] [id number] / / Clp Hrzn Ti 24 Clp Sm Red - [id number] Implanted:Qty : 1 on 03/11/2021 by Emeterio Esparza M.D. at [facility] Hardware e.g. pins/screws/ rods N/A: [employer] [id number] / / Clp Hrzn Ti 6 Clp Lg Orng - [id number] Implanted:Qty : 1 on 03/11/2021 by Emeterio Esparza M.D. at [facility] Hardware e.g. pins/screws/ rods N/A: [employer] [id number] / / Clp Hrzn Ti 6 Clp Md Steve - [id number] Implanted:Qty : 1 on 03/11/2021 by Emeterio Esparza M.D. at [facility] Hardware e.g. pins/screws/ rods N/A: [employer] [id number] / / Clp Hrzn Ti 24 Clp Md Steve - [id number] Implanted:Qty : 1 on 03/11/2021 by Emeterio Esparza M.D. at [facility] Hardware e.g. pins/screws/ rods N/A: Chest Teleflex [facility] [id number] 07/12/2025 [id number] / / [id number] Hip Implant Hip Implant Bilatera l: Hip Procedures Procedure Name Priority Date/Time Associated Diagnosis Comments LIPID PANEL, S Routine 04/21/2022 7:38 AM CDT Atherosclerosis Of Coronary Artery Bypass Graft Without Angina Pectoris COMPREHENSIVE METABOLIC PANEL, S/P Routine 03/23/2021 11:37 AM CDT Anemia from Last 3 Months or Most Recently Relevant to Health Maintenance Results * Lipid Panel (04/21/2022 7:38 AM CDT) Triglycerides 88 mg/dL 04/21/2022 8:40 AM CDT OWAT Comment: ----REFERENCE VALUE---- Normal: <150 mg/dL Borderline High: 150-199 mg/dL High: 200-499 mg/dL Very High: > or =500 mg/dL Cholesterol, Total 185 mg/dL 2021 8:40 AM CDT OWAT Comment: ----REFERENCE VALUE---- Desirable: < 200 mg/dL Borderline High: 200 - 239 mg/dL High: > or = 240 mg/dL Cholesterol, LDL, Calculated 92 mg/dL 04/21/2022 8:40 AM CDT OWAT Comment: ----REFERENCE VALUE---- Desirable: <100 mg/dL Above Desirable: 100-129 mg/dL Borderline High: 130-159 mg/dL High: 160-189 mg/dL Very High: >=190 mg/dL ----ADDITIONAL INFORMATION---- LDL cholesterol calculated using the Castellon/NIH equation. Cholesterol, HDL 77 >=40 mg/dL 04/21/20 8:40 AM CDT OWAT Cholesterol, Non-HDL, Calculated 108 mg/dL 04/21/2022 8:40 AM CDT OWAT Comment: ----REFERENCE VALUE---- Desirable: <130 mg/dL Above Desirable: 130-159 mg/dL Borderline High: 160-189 mg/dL High: 190-219 mg/dL Very High: > or =220 mg/dL Fasting (8 HR or more) y 04/21/2022 8:40 AM CDT OWAT Blood (Blood, Venous) 04/21/2022 7:38 AM CDT 04/21/2022 8:40 AM CDT us Millie Bradford M.D. LAB BLOOD ADD-ON Final Resul t [facility] [address] [place] [address], [place] OWAT [facility] [place] [address] [place] [address] * (ABNORMAL) Comprehensive Metabolic Panel (03/23/2021 11:37 AM CDT) Potassium, P 4.6 3.6 - 5.2 mmol/L 03/23/2021 12:19 PM CDT OWAT Sodium, P 136 135 - 145 mmol/L 03/23/2021 12:19 PM CDT OWAT Chloride, P 99 98 - 107 mmol/L 03/23/2021 12:19 PM CDT OWAT Bicarbonate, P 28 22 - 29 mmol/L 03/23/2021 12:19 PM CDT OWAT Anion Gap, P 9 7 - 15 03/23/2021 12:19 PM CDT OWAT BUN (Blood Urea Nitrogen), P 15 8 - 24 mg/dL 03/23/2021 12:19 PM CDT OWAT Creatinine 0.93 0.74 - 1.35 mg/dL 03/23/2021 12:19 PM CDT OWAT eGFR-Black/ >90 >=60 mL/min/BS A 03/23/2021 12:19 PM CDT OWAT Comment: ----ADDITIONAL INFORMATION---- Estimated GFR calculated using the 2009 CKD_EPI creatinine equation. eGFR Non-Black/ 83 >=60 mL/min/BS A 03/23/2021 12:19 PM CDT OWAT Comment: ----ADDITIONAL INFORMATION---- Estimated GFR calculated using the 2009 CKD_EPI creatinine equation. Calcium, Total, P 9.7 8.8 - 10.2 mg/dL 03/23/2021 12:19 PM CDT OWAT Glucose, P 94 70 - 140 mg/dL 03/23/2021 12:19 PM CDT OWAT Protein, Total, P 7.1 6.3 - 7.9 g/dL 03/23/2021 12:19 PM CDT OWAT Albumin, P 4.2 3.5 - 5.0 g/dL 03/23/2021 12:19 PM CDT OWAT Aspartate Aminotransferase (AST), P 31 8 - 48 U/L 03/23/2021 12:19 PM CDT OWAT Alkaline Phosphatase, P 210(H) 40 - 129 U/L 03/23/2021 12:19 PM CDT OWAT Alanine Aminotransferase (ALT), P 50 7 - 55 U/L 03/23/2021 12:19 PM CDT OWAT Bilirubin, Total, P 0.6 <=1.2 mg/dL 03/23/2021 12:19 PM CDT OWAT Blood (Blood, Venous) 03/23/2021 11:37 AM CDT 03/23/2021 11:47 AM CDT us Christian Mojica M.D. LAB BLOOD ADD-ON Final Re sult [facility] [address] [place] [address], [facility] OWAT [facility] [place] [address] [place] [address] from Last 3 Months or Most Recently Relevant to Health Maintenance Insurance MEDICARE Member Subscriber Plan / Payer (Ef fective 2015-Present) Name:Bruno Alejo Member ID:[id number] Relation to Subscriber:Self Name:Bruno Alejo Subscriber ID:[id number] Payer ID:Not on file Group ID:Not on file Type:Medicare Address: [place] [id number] [place] [id number] [facility] [employer] Advance Directives For more information, please contact: [phone] * Full Code (Latest Code Status on File) Date Activated Date Inactivated Comments 03/11/2021 8:12 PM 03/16/2021 2:12 PM Question Answer Comments Full Code: Discussed * Full Code Date Activated Date Inactivated Comments 03/08/2021 6:19 PM 03/11/2021 8:12 PM Question Answer Comments Full Code: Discussed Care Teams Air Liaison And Special Staff Relationship Specialty Start Date End Date Ary Oconnor M.D. [address] [place] [phone] PCP - General 08/31/22
--- OUTSIDE RECORDS SUMMARY | 2024-08-07 16:41 | XMS_ITS | Encounter Summary ---
Author Organization [facility] Address [address] [place] [address] Care Team Providers Care Hr Clerk Name Role Phone Ary Oconnor M.D. Primary Care Provider [phone] Reason for Referral * Outpatient (Routine) - Authorized Specialty Diagnoses / Procedures Referred By Stephanie yanes Referred To Contact Ary Oconnor M.D. [address], [place] [address] Phone: tel: fax: [facility] Region Referral ID Status Reason Start Date Expiration Date V isits Requested Visits Authorized [id number] Authorized 07/09/2024 01/08/2026 1 1 Scheduling Instructions Nurse AWV Do not schedule prior to due date to ensure insurance coverage Visit: Medicare Annual Wellness Never done. GER PEST * Outpatient (Routine) - Authorized Specialty Diagnoses / Procedures Referred By Stephanie yanes Referred To Contact Diagnoses Screening Abdominal Aortic Aneurysm Procedures US Aorta AAA Screening Ary Oconnor M.D. [address] [place] [address] Phone: tel: [facility] Region Referral ID Status Reason Start Date Expiration Date V isits Requested Visits Authorized [id number] Authorized 07/09/2024 07/09/2025 1 1 GER PEST Encounter Details Date Type Department Care Team (Late st Contact Info) Description 07/09/2024 Orders Only [facility] P[facility] MNT Ary Oconnor M.D. [address] [place] [address] Screening Examination Diabetes Mellitus; Screening Abdominal Aortic Aneurysm Social History Tobacco Use Types Packs/Day Years Used Date Smoking Tobacco: Former Cigarettes Q uit: 1981 Smokeless Tobacco: Never Alcohol Use Standard Drinks/Week Comments [...] declined 04/10/2022 How often do you attend restorationism or scientology serv ices? Patient declined 04/10/2022 Do you belong to any clubs o r organizations such as restorationism groups, unions, fraternal or athletic groups, or [...] Answer Date Recorded PHQ-2 Score 0 08/21/2022 [facility] [place] of Occupat ional Health - Occupational Stress [...] place to sleep or slept in a jail (including now)? No 04/10/2022 Nutrition Answer Date Recorded On average, how many serving s of fruits and vegetables do you eat per day (serving size is equal to 1 cup or approximately the size of a tennis ball)? 0-1 04/10/2022 Dental Answer Date Recorded Dental: Regular Dentist Unknown 03/08/20 21 Employment Answer Date Recorded Employment status Retired 04/10/2022 Sex and Gender Information Value Date Recorded Sex Assigned at Male 04/10/2022 6:49 PM CDT Legal Sex Male 4:32 PM CDT Gender Identity Male 04/10/2022 6:49 PM CDT Sexual Orientation Straight 04/10/2022 6: 49 PM CDT documented as of this encounter Plan of Treatment Scheduled Orders Name Type Priority Associated Diagnoses Orde r Schedule Glucose, Fasting Lab Routine Screening Examination Diabetes Mellitus Expected: 07/23/2024, Expires: 01/05/2025 US Aorta AAA Screening Imaging RAD - Routine (most inpatients and all outpatients) Screening Abdominal Aortic Aneurysm Expected: 07/23/2024, Expires: 01/05/2025 Scheduled Referrals Name Type Priority Associated Diagnoses Orde r Schedule Primary Care nurse visit (clinic) - [facility]; Medicare Annual Wellness Outpatient Referral Routine Expected: 08/06/2024, Expires: 01/05/2025 documented as of this encounter Visit Diagnoses Diagnosis Screening Examination Diabetes Mellitus Screening Abdominal Aortic Aneurysm documented in this encounter Care Teams Hr Clerk Relationship Specialty Start Date End Date Ary Oconnor M.D. [address] [place] [phone] PCP - General 08/31/22 documented as of this encounter
--- OUTSIDE RECORDS SUMMARY | 2024-08-07 16:41 | XMS_ITS | Referral Summary ---
Author Organization [facility] Address [address] [place] [address] Care Team Providers Care Geospatial Developer Name Role Phone Ary Oconnor M.D. Primary Care Provider [phone] Source Comments Patient records contain information from all sites at [facility]. For routine questions regarding patient records, call [phone] during business hours, M-F 8:00 AM - 5:00 PM Central Time. Record requests for emergency care only can be directed to [phone] at any time.[facility] Encounters Date Type Department Care Team Description 07/09/2024 Orders Only [facility] P[facility] MNT Ary Oconnor M.D. Screening Examination Diabetes Mellitus; Screening Abdominal Aortic Aneurysm from Last 3 Months Allergies No known active allergies Medications acetaminophen [...] extremity. Emeterio Esparza M.D. Primary Lulu Howard M.B.BJessicaSJessica Joy Loader Bypass Coronary Artery Graft Status Post 021 Anemia 03/10/2021 ST Elevation Myocardial Infa rction Involving Right Coronary Artery 03/08/2021 Hyperlipidemia Mixed 07/22/2019 Arthritis Hip 07/22/2019 Keratosis Actinic 07/22/2019 Nodule Prostate 07/22/2019 Personal History Of Nicotine Dependence 07/22/20 Stone Urinary Personal History 07/22/2019 Tinnitus Right 07/22/2019 Resolved Problems Problem Noted Date Diagnosed Date Resolved Date Pain Postoperative 03/12/2021 Postprocedural Hypotension 03/12/2021 0 03/15/2021 Immunizations Name Administration Dates Next Due PCV13 [...] declined 04/10/2022 How often do you attend nondenominational or roman catholic serv ices? Patient declined 04/10/2022 Do you belong to any clubs o r organizations such as nondenominational groups, unions, fraternal or athletic groups, or [...] Answer Date Recorded PHQ-2 Score 0 08/21/2022 [facility] [place] of Occupat ional Health - Occupational Stress [...] place to sleep or slept in a long-term (including now)? No 04/10/2022 Nutrition Answer Date [...] 05/09/2023 4:15 PM CDT Plan of Treatment Not on file Medical Devices Implanted Type Area Water Plant Operator Device Identifier Shelf Expiration Date Model / Serial / Lot Clp Hrzn Ti 24 Clp Sm Red - [id number] Implanted:Qty : 1 on 03/11/2021 by Emeterio Esparza M.D. at [facility] Hardware e.g. pins/screws/ rods N/A: [employer] [id number] / / Clp Hrzn Ti 24 Clp Sm Red - [id number] Implanted:Qty : 1 on 03/11/2021 by Emeterio Esparza M.D. at [facility] Hardware e.g. pins/screws/ rods N/A: [employer] [id number] / / Clp Hrzn Ti 6 Clp Lg Orng - [id number] Implanted:Qty : 1 on 03/11/2021 by Emeterio Esparza M.D. at [facility] Hardware e.g. pins/screws/ rods N/A: [employer] [id number] / / Clp Hrzn Ti 6 Clp Steve - [id number] Implanted:Qty : 1 on 03/11/2021 by Emeterio Esparza M.D. at [facility] Hardware e.g. pins/screws/ rods N/A: [employer] [id number] / / Clp Hrzn Ti 24 Clp Steve - [id number] Implanted:Qty : 1 on 03/11/2021 by Emeterio Esparza M.D. at [facility] Hardware e.g. pins/screws/ rods N/A: [employer] [id number] 07/12/2025 [id number] / / [id number] Hip Implant Hip Implant Bilatera l: [...] M.D. LAB BLOOD ADD-ON Final Resul t [facility] [address] [place] [address], [facility] OWAT [facility] [place] [address] [place] [address] * (ABNORMAL) Comprehensive Metabolic Panel (03/23/2021 11:37 [...] M.D. LAB BLOOD ADD-ON Final Re sult [facility] [address] [place] [address], [place] OW[place] [facility] [place] [address] [place] [address] from Last 3 Months or Most Recently Relevant to Health Maintenance Insurance MEDICARE [facility]ANCE Advance Directives For more information, please contact: [phone] * Full Code (Latest Code Status on File) Date Activated Date Inactivated Comments 03/11/2021 8:12 PM 03/16/2021 2:12 PM Question Answer Comments Full Code: Discussed * Full Code Date Activated Date Inactivated Comments 03/08/2021 6:19 PM 03/11/2021 8:12 PM Question Answer Comments Full Code: Discussed Care Teams Geospatial Developer Relationship Specialty Start Date End Date Ahrar, Ary, M.D. [address] [place] [phone] PCP - General 08/31/22
== END 2024-08-08 08:44 | disposition home or self-care (01) ==
LOC: RAD 08:45
PROVIDERS: PCP Chiropractor; Visit Provider Chiropractor
DX: I51.9 Heart disease, unspecified (principal)
CPT/HCPCS: 93306